=== PATIENT | female | born 1970 | race Caucasian/White ===

== ENCOUNTER → 2021-09-14 16:42 | Outpatient (CLI) | payer MEDICAID, SELFPAY ==
[2021-09-14 17:51] LABS: Absolute Lymphocyte Count 1.19 X10^3/uL (0.83-4.51); Absolute Neutrophil Count 5.3 X10^3/uL (2.0-7.7); Basophil# 0.13 X10^3/uL; Basophil% 1.6 % (0-1); Eosinophil# 0.41 X10^3/uL; Hematocrit 36.4 % (37-47); Hemoglobin 10.2 g/dL (12.0-15.0); Lymphocyte # 1.19 X10^3/ul (0.83-4.51); Lymphocyte % 14.5 % (19-41); Mean Corpuscular Hgb 19.8 pg (27.0-32.0); Mean Corpuscular Volume 70.8 fL (81-99); Mean Platelet Vol. 9.9 fl (6.2-12.0); Monocyte# 1.15 X10^3/uL; NRBC Flagged by Analyzer 0 % (0-5); Neutrophil # 5.31 X10^3/uL (2.7-7.7); Neutrophil % 64.7 % (47-70); POSITIVE MORPHOLOGY YES; Platelet Count 384 K/mm3 (150-450); RBC Distribution Width CV 27.9 % (11.6-14.6); RBC Distribution Width SD 69.1 fl (35.1-43.9); Red Blood Count 5.14 M/mm3 (4.2-5.4); White Blood Count 8.2 K/mm3 (4.4-11.0)
[2021-09-14 17:53] LABS: Differential Indicated SCAN CRITERIA MET
[2021-09-14 18:42] LABS: Anisocytosis 1+; Crenated RBC RARE; Differential Comment SCANNED; Hypochromasia 3+; Schistocytes RARE; Target Cells RARE
[2021-09-14 19:08] LABS: AST(SGOT) 47 U/L (15-37); Alanine Aminotransfer ALT/SGPT 90 U/L (13-56); Albumin, Serum 3.8 g/dL (3.2-5.0); Alkaline Phosphatase 59 U/L (45-117); Anion Gap 7 (5-15); BUN 13 mg/dL (7-18); Calcium,Total 9.4 mg/dL (8.5-10.1); Chloride 102 mmol/L (98-107); Creatinine, Serum 0.59 mg/dL (0.55-1.02); EST Glomerular Filtration Rate 113 mL/min (>60); Est Glom Filt Rate - Afr Amer 136 mL/min (>60); Globulin 3.8 g/dL (2.2-4.2); Glucose 98 mg/dL (74-106); Potassium 3.9 mmol/L (3.5-5.1); Protein, Total 7.6 g/dL (6.4-8.2); Sodium Level 137 mmol/L (136-145); Thyroid Stim Hormone (TSH) 1.48 uIU/mL (0.358-3.74)
[2021-09-15 09:17] LABS: Hepatitis C Antibody Non-Reactive (Nonreactive); Vitamin D,25 Hydroxy 31.8 ng/mL
== END ==
PROVIDERS: PCP Family Medicine Geriatric Medicine; Visit Provider Family Medicine Geriatric Medicine
DX: Z00.00 Encounter for general adult medical examination without abnormal findings (principal); E55.9 Vitamin D deficiency, unspecified; R53.83 Other fatigue
CPT/HCPCS: 36415; 80053; 82306; 84443; 85025; 86803

== ENCOUNTER 2021-11-25 11:42 | Outpatient (CLI) | payer MEDICAID, SELFPAY ==
[2021-11-25 15:15] LABS: Absolute Neutrophil Count 9.4 X10^3/uL (2.0-7.7); Basophil# 0.06 X10^3/uL; Basophil% 0.5 % (0-1); Eosinophils% 0.8 % (0-5); Hematocrit 42.2 % (37-47); Hemoglobin 13.5 g/dL (12.0-15.0); Lymphocyte % 10.1 % (19-41); Mean Corpuscular Hgb 27.8 pg (27.0-32.0); Mean Platelet Vol. 10.1 fl (6.2-12.0); Monocyte# 1.07 X10^3/uL; NRBC Flagged by Analyzer 0 % (0-5); Neutrophil # 9.43 X10^3/uL (2.7-7.7); Neutrophil % 79.3 % (47-70); POSITIVE MORPHOLOGY YES; Platelet Count 362 K/mm3 (150-450); RBC Distribution Width CV 22.8 % (11.6-14.6); RBC Distribution Width SD 73.6 fl (35.1-43.9); Red Blood Count 4.85 M/mm3 (4.2-5.4); White Blood Count 11.9 K/mm3 (4.4-11.0)
[2021-11-25 15:16] LABS: Differential Indicated SCAN CRITERIA MET
[2021-11-25 15:23] LABS: Vitamin D,25 Hydroxy 33.1 ng/mL
[2021-11-25 15:39] LABS: Anisocytosis 1+; Differential Comment SCANNED; Hypochromasia RARE; Target Cells RARE
[2021-11-25 15:41] LABS: ALB/GLOB Ratio 1.1 RATIO (0.9-2.4); AST(SGOT) 41 U/L (15-37); Alanine Aminotransfer ALT/SGPT 77 U/L (13-56); Albumin, Serum 4.2 g/dL (3.2-5.0); Alkaline Phosphatase 73 U/L (45-117); Anion Gap 6 (5-15); BUN 18 mg/dL (7-18); BUN/Creat Ratio 21.6 RATIO (10-20); Calcium,Total 9.1 mg/dL (8.5-10.1); Chloride 99 mmol/L (98-107); Creatinine, Serum 0.83 mg/dL (0.55-1.02); EST Glomerular Filtration Rate 76 mL/min (>60); Est Glom Filt Rate - Afr Amer 92 mL/min (>60); Ferritin 25 ng/mL (8-252); Globulin 3.8 g/dL (2.2-4.2); Glucose 93 mg/dL (74-106); Iron 43 ug/dL (50-170); Iron Binding Capacity,Total 404 ug/dL (250-450); Sodium Level 135 mmol/L (136-145)
== END 2021-11-25 23:59 | disposition short-term general hospital (02) ==
LOC: BIMLAB 11:42
PROVIDERS: PCP Internal Medicine; Referring Provider Internal Medicine; Visit Provider Internal Medicine
DX: D64.9 Anemia, unspecified (principal); K59.00 Constipation, unspecified; E55.9 Vitamin D deficiency, unspecified
CPT/HCPCS: 36415; 80053; 82306; 82728; 83540; 83550; 85025

== ENCOUNTER 2022-01-07 16:29 | Outpatient (CLI) | payer MEDICAID, SELFPAY ==
--- NOTE | 2022-01-07 16:44 | RAD_ITS ---
STUDY: X-RAY - LEFT FOOT CLINICAL: Female, 52 years old. Bruising and falls TECHNIQUE: 3 view(s) of the foot. COMPARISON: None. FINDINGS: Normal talus, calcaneus, and tarsal bones. Normal visualized subtalar, talonavicular, calcaneocuboid, tarsal and tarsometatarsal articulations. Normal metatarsi. Normal metatarsophalangeal joint of the great toe. Normal tibial and fibular sesamoid bones. Normal interphalangeal joint of the great toe. Normal phalanges of the great toe. Normal second through fifth metatarsophalangeal joints. Normal interphalangeal joints and phalanges of the lesser toes. There is mild soft tissue edema about the dorsal aspect of the foot. There is no visualized fracture. RAD/Foot min 3 Views IMPRESSION: Mild soft tissue edema. No visualized fracture. If pain persists, consider follow-up study such as MRI to exclude occult fracture if appropriate. Electronically Signed: Jing Berrios MD at 1:05 EST Reading Location ID and State: [facility] / [place] Tel , Service support ,
--- NOTE | 2022-01-07 16:49 | RAD_ITS ---
STUDY: X-RAY - RIGHT FOOT CLINICAL: Female, 52 years old. BRUISING AND FALLS TECHNIQUE: 3 view(s) of the foot. COMPARISON: None. FINDINGS: Normal talus, calcaneus, and tarsal bones. Normal visualized subtalar, talonavicular, calcaneocuboid, tarsal and tarsometatarsal articulations. There is demineralization of the metatarsi. Normal metatarsophalangeal joint of the great toe. Normal tibial and fibular sesamoid bones. Normal interphalangeal joint of the great toe. Normal phalanges of the great toe. Normal second through fifth metatarsophalangeal joints. Normal interphalangeal joints and phalanges of the lesser toes. There is mild soft tissue edema about the dorsal aspect of the foot. RAD/Foot min 3 Views IMPRESSION: Mild soft tissue edema. There is bony osteopenia. Fracture line is not identified. However could consider follow-up MRI for further evaluation to exclude occult fracture. Electronically Signed: Jing Berrios MD at 1:07 EST ,
== END 2022-01-07 23:59 | disposition home or self-care (01) ==
LOC: RAD 16:38
PROVIDERS: PCP Internal Medicine; Visit Provider Physician Assistant
DX: S90.31XA Contusion of right foot, initial encounter (principal); L97.529 Non-pressure chronic ulcer of other part of left foot with unspecified severity; L97.519 Non-pressure chronic ulcer of other part of right foot with unspecified severity; W19.XXXA Unspecified fall, initial encounter
CPT/HCPCS: 73630

== ENCOUNTER 2022-01-13 14:59 | Outpatient (RCR) | payer MEDICAID, SELFPAY ==
--- NOTE | 2022-01-13 16:01 | HP.PTEVAL ---
Patient's Visit Information VAL SIMPSON is a 52 year old F referred to Physical Therapy by SPARKLE Bose with a diagnosis of Malaise and repeated falls. Date of Evaluation: 01/13/22 Physical Therapist: Herberth Burk, DPT, OCS, CSCS - Visit Plan Plan: Pt does not follow therapists directions enough for making trip to therapy worht the time. I have educated brother on squats, heel raises, posture with wedge between knees, butterfly stretch, HS stretch and increasing walking(which should happen as she gets back to [facility]. Written instruct given and brother agreeable to working on these at home vs attempting in clinic based on poor prognosis of following directions. - Subjective Dr. Blas sent her and she is here with her younger brother today. Mom recently and fell one time 2 yrs ago with her. She is non verbal. He does all the talking. He says her walking has suffered . She lives with him and he has guardianship last tuesday when mom . No signs of pain. He says she is walking more pigeon toed. Very stiff gait and not bending knees as much anymore. He says no other falls. Steps at home but she stays on first floor. Steps to enter with railing. She walks by herself at home but appears intoxicated when fatigued. She does not walk without soemone else present. Someone present climbing steps. She does not get up without help. bathroom and dressing require assist mostly dependent as does feeding. She has mental disability since , developmental disorder. Not employed, spends day at home or at [facility] 5 days perweek for 6 hours. Does not have WC but has access to one. No regular ex except walking at [facility]. - Objective Walks with brother trailing her back to PT room deliberately and safely today. Has IR at both femurs and avoids push off at the ankles. Short steps but can walk fast when she wants. Trasnfers bed and chair quickly and I. Pt is nonverbal but makes some intermittent clicking sounds. Follows demonstration to sit and stand and walk well but not commands for ROM or strength testing. Will not foloow commands for turning head or closing eyes for balance testing. Climbs steps with two rails and either foot I, descends prefers L and will not use R even when cued. Tightness apparent in hip flexors as she does not like to lie flat on back and sits up immediately. Otherwise can get to anatomical position. Will not follow directions for MMT or ROM testing. appeaars to be tight in ext rotation at hips, HS and gastroc. AROM WFL on LE otherwise adn UE. Posture is forward head and tends to sit with legs crossed and hips adducted. - Rehabilitation Potential Physical Therapy Diagnosis: Weakness and tightness from sedentary for the last couplke years. Rehabilitation Potential: Questionable - Anticipated Interventions Thank you for the opportunity to evaluate your patient. For Medicare and Medicare HMO plans, please review the plan of care and approve it. It will need to be FAXED BACK to us at [phone] for Medicare purposes. For Medicare only, by signing this I certify the plan of care. Please let me know if there are questions or concerns regarding this plan of care. Physician Signature: Date:
== END 2022-01-13 19:00 | disposition home or self-care (01) ==
LOC: PT 14:59
PROVIDERS: PCP Internal Medicine; Referring Provider Physician Assistant; Visit Provider Physician Assistant
DX: R53.81 Other malaise (principal); R29.6 Repeated falls
CPT/HCPCS: 97162

== ENCOUNTER 2022-02-03 15:30 | Outpatient (RCR) | payer MEDICAID, SELFPAY | END 2022-02-27 23:59 | LOC: NS 15:30 | PROVIDERS: PCP Internal Medicine; Referring Provider Physician Assistant; Visit Provider Physician Assistant | DX: Z71.3 Dietary counseling and surveillance (principal); R63.4 Abnormal weight loss; Z68.1 Body mass index [BMI] 19.9 or less, adult ==

== ENCOUNTER 2022-02-08 12:31 | Day surgery (SDC) | payer MEDICAID, SELFPAY ==
[2022-02-08] VITALS (9 sets, daily range): BP systolic 85–142; BP diastolic 49–86; PULSE 70–115; RESP 14–16; TEMP 36–37; O2SAT 12–100; BMI 16.5
--- NOTE | 2022-02-08 12:42 | HP.PCM_ITS ---
HPI - General HPI Narrative VAL SIMPSON, is a 52 F who presents for screening colonoscopy patient is nonverbal accompanied by her chobey-wl-rxt/nickel plant operator. Patient still having constipation per her nickel plant operator/fjydez-wf-xka she holds her stool in for about 4 days at a time. She weighed about 106lb eating [id number] ankita but did go down to 91 with colonoscopy prep and 2 days of clears. from 12/24/21 office appt: HPI: VAL SIMPSON, is a 51 F who presents to the office today for colonoscopy due to constipation along with her brother and sister david. Pt is non verbal--she lives with and is cared for by her brother and sister david- they are currently working on getting guardianship as her mom was her guardian before she . Pt was 69 lb before she came to live with them, now she is 90 lbs- eating 3000 calories a day- liquids or soft food. [facility] Medical History (Updated 02/04/22 @ 14:41 by Paula Chan) Anemia Autism Colon cancer screening Constipation Developmental non-verbal disorder History of blood transfusion Hypokalemia Insomnia due to mental disorder Intellectual disability Non-smoker Seasonal allergies Seizures Teeth decayed Vision problem Vitamin D deficiency Home Medications diphenhydramine HCl 25 mg capsule 25 mg PO BID 11/25/21 [History Last Taken Unknown] ferrous sulfate 325 mg (65 mg iron) tablet 325 mg PO DAILY 11/25/21 [History Last Taken Unknown] uapjisul-wnk-siln 18 mg-FA 400 mcg-calcium 500 mg-vit K 50 mcg tablet 1 tab PO DAILY 11/25/21 [History Last Taken Unknown] gait belt #2 ea 01/07/22 [Rx Last Taken Unknown] incontinence pad, liner, disp #125 ea 01/07/22 [Rx Last Taken Unknown] potassium bicarbonate-citric acid 25 mEq effervescent tablet 25 meq PO DAILY #90 ea 01/07/22 [Rx Last Taken Unknown] quetiapine 25 mg tablet 25 mg PO QHS #30 tab 01/07/22 [Rx Last Taken Unknown] compr.stocking,knee,long,small #12 ea 01/13/22 [Rx Last Taken Unknown] Walk in transitional tub with jets #1 ea 01/19/22 [Rx Last Taken Unknown] bisacodyl 5 mg tablet,delayed release 20 mg PO ONCE #4 tab 01/20/22 [Rx Last Taken Unknown] magnesium citrate 296 ml PO ONCE #2 bottle 01/20/22 [Rx Last Taken Unknown] acetaminophen 500 mg PO BID 02/04/22 [History Last Taken Unknown] ascorbic acid (vitamin C) [Vitamin C] 1,000 mg PO DAILY 02/04/22 [History Last Taken Unknown] biotin 800 mcg PO DAILY 02/04/22 [History Last Taken Unknown] calcium 26-vit D3-magnesium 15 1 cap PO DAILY 02/04/22 [History Last Taken Unknown] cholecalciferol (vitamin D3) [Vitamin D3] 25 mcg PO DAILY 02/04/22 [History Last Taken Unknown] melatonin 3 mg PO QHS 02/04/22 [History Last Taken Unknown] omega-3 fatty acids [Fish Oil] 1,000 mg PO DAILY 02/04/22 [History Last Taken Unknown] vitamin B complex 1 tab PO DAILY 02/04/22 [History Last Taken Unknown] vitamin E 45 unit PO DAILY 02/04/22 [History Last Taken Unknown] Allergy/AdvReac Type Severity Reaction Status Date / Time No Known Allergies Allergy Verified 02/04/22 14:26 Family History Other Alcoholism Anemia Anesthesia complication Anxiety Arthritis Asthma Bleeding disorder Blood clot in vein Bowel disease FH: defects Heart disease High cholesterol Hypertension Mental disorder Myocardial infarction Osteoporosis Psychiatric care Seasonal allergies Seizure, epileptic Thyroid disorder Surgical History History of appendectomy Social History household members: caregiver Smoking Status: Never smoker alcohol intake: never substance use type: does not use what type of physical activity do you participate in: walking Past Medical/Surgical History Planned Operation Planned Operative Procedure/s: COLONOSCOPY Previous Hospitalizations/Surgeries HX Hospitalizations: Yes (TRANSFUSION) Any Problems With Anesthesia: No You/Your Family Experience Fever (Hyperthermia) With Anes: No Cholinesterase deficiency: No Cardiovascular Hx Hypertension: No Respiratory Hx Sleep Apnea: No Hx Respiratory Tract Infection/Cold (presently): No Do You Snore Loudly (louder than talking or can be heard): No Do You Often Feel Tired/ Fatigued/ Sleepy Dring Daytime?: No Has Anyone Observed You Stop Breathing During Sleep?: No Result (for STOP score): Negative Smoking Status: Never smoker Gastrointestinal Special diet followed at home: Yes (High-Calorie,High-Protein) Neurological Does patient have nerve stimulator: No Allergies No Known Allergies Allergy (Verified 02/04/22 14:26) Discharge Is Pt Admitted From a Assisted, or a Penitentiary: No After D/C, Where Do you Plan to Go: Return Home Vital Signs Vital Signs Vital Signs: Weight Weight: 100 lb 9.6 oz Physical Exam Const alert and no apparent distress Nutritional Appearance: underweight HEENT normocephalic and head/scalp atraumatic Resp normal respiratory effort Cardio regular rate GI soft to palpation and non-tender; Negative for non-distended Extremity no clubbing, cyanosis or edema Neuro CN's II-XII intact bilaterally Psych mental status grossly normal Assessment & Plan Assessment/Plan (1) Colon cancer screening: (2) Constipation: (3) Intellectual disability: Procedure Criteria Type of Procedure Procedure Type: Elective Elective Risks - COVID COVID Risk Discussion: The surgeon/proceduralist and patient have discussed in detail the risk of exposure to and/or potential harm posed by the COVID-19 virus with having a surgery/procedure at this time versus the risk of delaying the surgery/procedure. It is not possible to know either the risk of delaying the surgery or procedure or chance of getting an infection with perfect accuracy, but a joint decision was made between the patient and the surgeon/proceduralist to proceed at this time with the scheduled surgery/procedure as indicated on the consent form. Surgery Risks - Colonoscopy Risks Include but are not Limited To: Risks include but are not limited to: Bleeding, perforation requiring further surgery, inability to complete colonoscopy requiring barium enema.
[2022-02-08] MEDS: Lactated Ringers 1,000 ML 15 ML IV (13:30)
--- NOTE | 2022-02-08 15:39 | OP.COLON_ITS ---
Patient Name: Clari Knapp Procedure Date: 02/08/2022 1:54 PM Date of : 1970 Age: 52 Procedure: Colonoscopy Indications: Screening for colorectal malignant neoplasm Providers: Melissa White MD Medicines: Monitored Anesthesia Care Patient Profile: This is a 52 year old female. Last Colonoscopy: none. The patient's first colonoscopy is today. Complications: No immediate complications. Procedure: Pre-Anesthesia Assessment: - Prior to the procedure, a History and Physical was performed, and patient medications and allergies were reviewed. The patient's tolerance of previous anesthesia was also reviewed. The risks and benefits of the procedure and the sedation options and risks were discussed with the patient. All questions were answered, and informed consent was obtained. Prior Anticoagulants: The patient has taken no previous anticoagulant or antiplatelet agents. ASA Grade Assessment: Per anesthesia. After reviewing the risks and benefits, the patient was deemed in satisfactory condition to undergo the procedure. After I obtained informed consent, the scope was passed under direct vision. Throughout the procedure, the patient's blood pressure, pulse, and oxygen saturations were monitored continuously. The Colonoscope was introduced through the anus and advanced to the cecum, identified by the ileocecal valve. The colonoscopy was performed with difficulty due to poor bowel prep with stool present and a tortuous colon. Successful completion of the procedure was aided by applying abdominal pressure and lavage. The patient tolerated the procedure well. The quality of the bowel preparation was poor. Scope In: 2:11:18 PM Scope Withdrawal Time 0 hours 17 minutes 12 seconds Scope Out: 3:31:51 PM Total Procedure Duration Time 1 hour 20 minutes 33 seconds Findings: The perianal and digital rectal examinations were normal. Due to poor prep/fibrous debris--unable to visual any polyps <6 mm; lavaged about 3 liters. No masses/polyps seen. Impression: - Preparation of the colon was poor. - No specimens collected. Recommendation: - Discharge patient to home. - Resume previous diet. - Continue present medications. - Repeat colonoscopy 2-3 years for screening purposes. Procedure Code(s): --- Professional --- G0121, PT, Colorectal cancer screening; colonoscopy on individual not meeting criteria for high risk Diagnosis Code(s): --- Professional --- Z12.11, Encounter for screening for malignant neoplasm of colon CPT copyright 2017 [employer]. All rights reserved. The codes documented in this report are preliminary and upon senior hardware engineer review may be revised to meet current compliance requirements. MD Melissa Stokes MD 02/08/2022 3:38:28 PM This report has been signed electronically. Number of Addenda: 0 Note Initiated On: 02/08/2022 1:54 PM
--- NOTE | 2022-02-08 15:39 | OP.CCLET_ITS ---
02/08/2022 Raymundo Blas MD [address] [place] [address] [place] [address] Re : Colonoscopy procedure for Clari Knapp Dear Dr. Blas This procedure was performed on Tuesday, February 08, 2022. My impressions and recommendations are as follows: Impressions : - Preparation of the colon was poor. - No specimens collected. Recommendations : - Discharge patient to home. - Resume previous diet. - Continue present medications. - Repeat colonoscopy 2-3 years for screening purposes. My findings are described in the full procedure note, which is enclosed. If I can be of further assistance, please feel free to contact me at Doctor phone number(s): , Work: . Sincerely, MD Meilssa Stokes MD 02/08/2022 3:38:28 PM This report has been signed electronically.
== END 2022-02-08 23:59 | disposition home or self-care (01) ==
LOC: EN 12:34 → AC 12:37
PROVIDERS: PCP Internal Medicine; Referring Provider Internal Medicine; Visit Provider Surgery
PROC: 0DJD8ZZ Inspection of Lower Intestinal Tract, Via Natural or Artificial Opening Endoscopic (ICD-10-PCS; CPT 45378; principal; 2022-02-08 13:55)
DX: Z12.11 Encounter for screening for malignant neoplasm of colon (principal); K59.00 Constipation, unspecified; F79 Unspecified intellectual disabilities
CPT/HCPCS: 45378; 87811; 97802; J7120; J2405

== ENCOUNTER 2022-03-14 21:11 | Emergency (ER) | payer MEDICAID, SELFPAY ==
[2022-03-14 21:13] VITALS: BP 127/67; PULSE 102; RESP 18; TEMP 36.8; O2SAT 98; BMI 16.2
--- NOTE | 2022-03-14 22:20 | EKG12_ITS ---
Test Reason : GEN ILLNESS Blood Pressure : / mmHG Vent. Rate : 106 BPM Atrial Rate : 106 BPM P-R Int : 098 ms QRS Dur : 074 ms QT Int : 324 ms P-R-T Axes : 070 075 022 degrees QTc Int : 430 ms Sinus tachycardia with short OR T wave abnormality, consider inferior ischemia Abnormal ECG Confirmed by RAMYA TAMEZ, GUSTAVO ([id number]), clinical editor MECHE GLASER ([id number]) on 03/15/2022 2:04:34 PM Referred By: PL Confirmed By:GUSTAVO BUI MD
--- NOTE | 2022-03-14 22:22 | EX.ED.DYSGE1 ---
HPI History of Present Illness Chief Complaint: General Illness Informant: legal guardian and family Narrative Narrative: History is from brother and brother's who is the primary caregiver. Patient is nonverbal at baseline. She has a history of MRDD. They brought her in because she is just not eating and drinking. This is evidently been a lifelong challenge for her. This patient's mother back in July. She is now with new family members. When she got to them she was only about 60 pounds. They got her up to about 115 pounds but she is now losing it back down to 89 pounds. This seems to worsen when her teeth worsen. She has history of some dental infections. She was on antibiotics back in January and it did seem to help transiently. She has further appointments with dentist. She also has an appointment with surgery on Tuesday for placement of a PEG tube. They brought her in today because her just concerned she is getting too dehydrated. If she drinks any liquids she will vomit or spit them back up. They can get some thickened liquids in her but it takes quite a bit of time. They spend about 15 or 16 hours a day trying to get food into her. This is just getting progressively worse. There is no reported fevers. No reported coughing. No reported change in urine. Nothing seems to make this better or worse other than antibiotics for the teeth did seem to help transiently to some degree. Patient had a colonoscopy in January that evidently showed no acute process. [facility] Medical History Anemia Autism Chronic constipation Colon cancer screening Constipation Dental infection Developmental non-verbal disorder Feeding difficulties, behavioral History of blood transfusion Hypokalemia Insomnia due to mental disorder Intellectual disability Non-smoker Nutrition disorder Seasonal allergies Seizures Teeth decayed Vision problem Vitamin D deficiency Home Medications diphenhydramine HCl 25 mg capsule 25 mg PO BID 11/25/21 [History Last Taken Unknown] ferrous sulfate 325 mg (65 mg iron) tablet 325 mg PO DAILY 11/25/21 [History Last Taken Unknown] lxydrnls-cpz-zxyv 18 mg-FA 400 mcg-calcium 500 mg-vit K 50 mcg tablet 1 tab PO DAILY 11/25/21 [History Last Taken Unknown] gait belt #2 ea 01/07/22 [Rx Last Taken Unknown] incontinence pad, liner, disp #125 ea 01/07/22 [Rx Last Taken Unknown] potassium bicarbonate-citric acid 25 mEq effervescent tablet 25 meq PO DAILY #90 ea 01/07/22 [Rx Last Taken Unknown] quetiapine 25 mg tablet 25 mg PO QHS #30 tab 01/07/22 [Rx Last Taken Unknown] compr.stocking,knee,long,small #12 ea 01/13/22 [Rx Last Taken Unknown] Walk in transitional tub with jets #1 ea 01/19/22 [Rx Last Taken Unknown] bisacodyl 5 mg tablet,delayed release 20 mg PO ONCE #4 tab 01/20/22 [Rx Last Taken Unknown] acetaminophen 500 mg PO BID 02/04/22 [History Last Taken Unknown] ascorbic acid (vitamin C) [Vitamin C] 1,000 mg PO DAILY 02/04/22 [History Last Taken Unknown] biotin 800 mcg PO DAILY 02/04/22 [History Last Taken Unknown] calcium 26-vit D3-magnesium 15 1 cap PO DAILY 02/04/22 [History Last Taken Unknown] melatonin 3 mg PO QHS 02/04/22 [History Last Taken Unknown] omega-3 fatty acids [Fish Oil] 1,000 mg PO DAILY 02/04/22 [History Last Taken Unknown] vitamin B complex 1 tab PO DAILY 02/04/22 [History Last Taken Unknown] vitamin E 45 unit PO DAILY 02/04/22 [History Last Taken Unknown] linaclotide 72 mcg capsule 72 mcg PO QAM #30 cap 02/19/22 [Rx Last Taken Unknown] cephalexin 250 mg PO Q6H 7 Days #140 ml 03/15/22 [Rx Last Taken Unknown] Allergy/AdvReac Type Severity Reaction Status Date / Time No Known Allergies Allergy Verified 03/14/22 21:15 Family History Other Alcoholism Anemia Anesthesia complication Anxiety Arthritis Asthma Bleeding disorder Blood clot in vein Bowel disease FH: defects Heart disease High cholesterol Hypertension Mental disorder Myocardial infarction Osteoporosis Psychiatric care Seasonal allergies Seizure, epileptic Thyroid disorder Surgical History History of appendectomy Social History household members: caregiver Smoking Status: Never smoker alcohol intake: never substance use type: does not use what type of physical activity do you participate in: walking ROS ROS ED Review of Systems ROS Unobtainable: due to mental condition and due to mental status Constitutional Constitutional ED: Reports weight loss; Denies chills or fever(s) ENT ENT ED: Denies rhinorrhea Respiratory/Chest Respiratory/Chest: Denies cough Gastrointestinal Gastrointestinal: Reports other Details: See history of present illness. No indication of abdominal pain. Genitourinary Genitourinary ED: Denies urinary frequency Integumentary Reports other Details: Patient gets contusions but she commonly hits herself against the wall. This is not new. ; Denies rash Allergic/Immunologic Allergic/Immunologic ED: Denies urticaria EXAM Physical Exam Const Vital Signs: 03/14/22 21:13 03/14/22 21:22 Temperature 98.2 F Temperature Source Temporal Pulse Rate 102 H Respiratory Rate 18 Respiratory Effort Normal Non-Labored Respiratory Pattern Normal Blood Pressure 127/67 H Blood Pressure Mean 87 Pulse Ox 98 Oxygen Delivery Method Room Air Positive well nourished Constitutional Narrative: Patient is sitting calmly in bed. She is quite thin mildly cachectic. Does not look uncomfortable. HEENT Reports dry mucous membranes HEENT Narrative: Mucous membranes are quite dry. She has diffusely poor dentition. No grossly visible abscess. Mouth ED: Yes dry mucous membranes Mouth: dry mucous membranes Eyes EOMs intact bilaterally Neck supple and no JVD Chest Wall inspection of chest normal Resp normal respiratory effort and clear to auscultation bilaterally Cardio regular rate and regular rhythm GI normal to inspection, nondistended, normoactive bowel sounds and non-tender GI Narrative: Abdomen is not distended. Bowel sounds are normal. There is no indication of tenderness Palpation: soft Back/Spine no CVA tenderness Extremity Extremity Narrative: Patient has a few contusions on bony prominences. No sign of significant injury. Neuro Neuro Narrative: Patient is alert and aware. She is nonverbal at baseline. Sensorium / Orientation: alert Skin no rashes or lesions noted MDM MDM MDM Narrative Medical decision making narrative: Patient's blood work showed essentially normal CBC other than a minimal elevation of her white count. Sodium was a little bit high. Her creatinine is preserved. But her BUN to creatinine ratio is high. She is given IV fluids here. Her lactate is normal. Urine shows only 0-5 white cells. We will send a urine culture. I discussed options with the family. Patient's really at her baseline they wanted to make sure that she did not have severe abnormalities. I explained that she does have high sodium but with some IV fluids and encouraging more fluids this should improve. It does need to be rechecked and likely 24 to 48 hours to make sure its not going up. If it is going up she will likely need may be edema and admission and hydration but they like to hold off on that at this time. She has consult for PEG tube coming up this Tuesday. I explained that she will likely need abdominal binder to avoid her pulling on the PEG tube. She will likely do intermittent feedings and fluids. We discussed reasons to return. Patient also has extremely poor dentition and erosions with erythema. She does not have malodorous breath consistent with ANUG. However we will treat with antibiotics as this helped last time. Lab Data Attestation: I reviewed the patient's lab results. Labs: Laboratory Results - last 24 hr 03/14/22 03/14/22 03/14/22 22:35 22:35 22:35 WBC 11.9 H RBC 4.19 L Hgb 12.5 Hct 40.6 MCV 96.9 MCH 29.8 MCHC 30.8 L RDW Std Deviation 56.2 H RDW Coeff of [place] 15.9 H Plt Count 494 H MPV 9.6 Immature Gran % (Auto) 0.500 Neut % (Auto) 76.8 H Lymph % (Auto) 11.2 L [place] % (Auto) 10.9 H Eos % (Auto) 0.3 Baso % (Auto) 0.3 Absolute Neuts (auto) 9.2 H Absolute Lymphs (auto) 1.33 Nucleated RBC % 0 Sodium 150 H Potassium 3.6 Chloride 115 H Carbon Dioxide 30.0 Anion Gap 5 BUN 33 H Creatinine 0.70 Estim Creat Clear Calc 58.55 Est GFR (MDRD) Af Amer 112 Est GFR (MDRD) Non-Af 93 BUN/Creatinine Ratio 47.2 H Glucose 97 Lactic Acid 0.7 Calcium 8.4 L Total Bilirubin 0.40 AST 60 H ALT 82 H Alkaline Phosphatase 209 H Total Protein 6.2 L Albumin 3.2 Globulin 3.0 Albumin/Globulin Ratio 1.1 Urine Color Urine Clarity Urine pH Ur Specific [place] Urine Protein Urine Glucose (UA) Urine Ketones Urine Occult Blood Urine Nitrite Urine Bilirubin Urine Urobilinogen Ur Leukocyte Esterase Urine RBC Urine WBC Ur Squamous Epith Cells Urine Bacteria Urine Mucus 03/14/22 23:47 WBC RBC Hgb Hct MCV MCH MCHC RDW Std Deviation RDW Coeff of [place] Plt Count MPV Immature Gran % (Auto) Neut % (Auto) Lymph % (Auto) [place] % (Auto) Eos % (Auto) Baso % (Auto) Absolute Neuts (auto) Absolute Lymphs (auto) Nucleated RBC % Sodium Potassium Chloride Carbon Dioxide Anion Gap BUN Creatinine Estim Creat Clear Calc Est GFR (MDRD) Af Amer Est GFR (MDRD) Non-Af BUN/Creatinine Ratio Glucose Lactic Acid Calcium Total Bilirubin AST ALT Alkaline Phosphatase Total Protein Albumin Globulin Albumin/Globulin Ratio Urine Color Yellow Urine Clarity Cloudy Urine pH 7.0 Ur Specific [place] 1.010 Urine Protein 30 H Urine Glucose (UA) Normal Urine Ketones 5 H Urine Occult Blood 250 H Urine Nitrite Negative Urine Bilirubin Negative Urine Urobilinogen 4 H Ur Leukocyte Esterase 25 H Urine RBC 10-25 SEEN Urine WBC 0-5 SEEN Ur Squamous Epith Cells 0-5 SEEN Urine Bacteria 4+ Urine Mucus 0 SEEN EKG Initial EKG: Comments: EKG done as part of medical work-up for mild tachycardia. EKG read by me shows a sinus rhythm with regular rhythm and overall rate of 106. Indicating sinus tachycardia. No acute ST elevation or depression although there is some baseline artifact. FL interval, QRS duration and QTc are normal. Discharge Plan Triage Chief Complaint: General Illness ED Provider: Jae Bonilla Dx/Rx/DC Orders Clinical Impression: Acute hypernatremia, Mild dehydration, Dental infection Instructions: Dehydration Prescriptions: New cephalexin 250 mg/5 mL suspension for reconstitution 250 mg PO Q6H 7 Days Qty: 140 RF: 0 No Action ferrous sulfate [Feosol] 325 mg (65 mg iron) tablet 325 mg PO DAILY RF: 0 Women's Multivitamin 18 mg-400 mcg- 500 mg-50 mcg tablet 1 tab PO DAILY RF: 0 diphenhydramine HCl [Allergy (diphenhydramine)] 25 mg capsule 25 mg PO BID RF: 0 (DME) gait belt See Rx Instructions .Route .MEDSUPPLY Qty: 2 RF: 0 (DME) incontinence pad, liner, disp Pad See Rx Instructions .ROUTE .MEDSUPPLY Qty: 125 RF: 3 potassium bicarb-citric acid 25 mEq tablet, effervescent 25 meq PO DAILY Qty: 90 RF: 3 quetiapine [Seroquel] 25 mg tablet 25 mg PO QHS Qty: 30 RF: 1 Linzess 72 mcg capsule 72 mcg PO QAM Qty: 30 RF: 3 biotin 800 mcg Tablet 800 mcg PO DAILY RF: 0 melatonin 3 mg Tablet 3 mg PO QHS RF: 0 acetaminophen 500 mg Tablet 500 mg PO BID RF: 0 vitamin B complex Tablet 1 tab PO DAILY RF: 0 ascorbic acid (vitamin C) [Vitamin C] 500 mg Tablet Extended Release 1,000 mg PO DAILY RF: 0 vitamin E 50 unit Capsule 45 unit PO DAILY RF: 0 Fish Oil Capsule 1,000 mg PO DAILY RF: 0 calcium 26-vit D3-magnesium 15 167 mg calcium- 1.67 mcg-83 mg Capsule 1 cap PO DAILY RF: 0 (DME) compr.stocking,knee,long,small Misc See Rx Instructions .ROUTE .MEDSUPPLY Qty: 12 RF: 0 (DME) Walk in transitional tub with jets See Rx Instructions .Route .MEDSUPPLY Qty: 1 RF: 0 bisacodyl [Dulcolax (bisacodyl)] 5 mg tablet,delayed release (DR/EC) 20 mg PO ONCE Qty: 4 RF: 0 Primary Care Provider: Raymundo Blas Referrals: Raymundo Blas MD [Primary Care Provider] - 2 Days Disposition Disposition: Home, Self Care
[2022-03-14] MEDS: 0.9% Normal Saline 1,000 ML 1000 ML IV (22:41)
[2022-03-14] MEDS: LORazepam 2 MG/ML Syringe IM (22:49)
[2022-03-14 22:53] LABS: Absolute Lymphocyte Count 1.33 X10^3/uL (0.83-4.51); Absolute Neutrophil Count 9.2 X10^3/uL (2.0-7.7); Basophil# 0.03 X10^3/uL; Basophil% 0.3 % (0-1); Eosinophil# 0.03 X10^3/uL; Eosinophils% 0.3 % (0-5); Hematocrit 40.6 % (37-47); Hemoglobin 12.5 g/dL (12.0-15.0); Lymphocyte # 1.33 X10^3/ul (0.83-4.51); Lymphocyte % 11.2 % (19-41); Mean Corp Hgb Conc 30.8 g/dL (32-36); Mean Corpuscular Hgb 29.8 pg (27.0-32.0); Mean Corpuscular Volume 96.9 fL (81-99); Mean Platelet Vol. 9.6 fl (6.2-12.0); Monocyte% 10.9 % (0-10); NRBC Flagged by Analyzer 0 % (0-5); Neutrophil # 9.17 X10^3/uL (2.7-7.7); Neutrophil % 76.8 % (47-70); Platelet Count 494 K/mm3 (150-450); RBC Distribution Width CV 15.9 % (11.6-14.6); RBC Distribution Width SD 56.2 fl (35.1-43.9); Red Blood Count 4.19 M/mm3 (4.2-5.4); White Blood Count 11.9 K/mm3 (4.4-11.0)
[2022-03-14 23:07] LABS: ALB/GLOB Ratio 1.1 RATIO (0.9-2.4); AST(SGOT) 60 U/L (15-37); Alanine Aminotransfer ALT/SGPT 82 U/L (13-56); Albumin, Serum 3.2 g/dL (3.2-5.0); Alkaline Phosphatase 209 U/L (45-117); Anion Gap 5 (5-15); BUN 33 mg/dL (7-18); BUN/Creat Ratio 47.2 RATIO (10-20); Calcium,Total 8.4 mg/dL (8.5-10.1); Chloride 115 mmol/L (98-107); EST Glomerular Filtration Rate 93 mL/min (>60); Est Glom Filt Rate - Afr Amer 112 mL/min (>60); Estimated Creatinine Clearance 58.55 ml/min; Glucose 97 mg/dL (74-106); Potassium 3.6 mmol/L (3.5-5.1); Protein, Total 6.2 g/dL (6.4-8.2); Sodium Level 150 mmol/L (136-145)
[2022-03-14 23:13] LABS: Lactic Acid 0.7 mmol/L (0.4-1.9)
[2022-03-14 23:53] LABS: Mucous, Urine 0 SEEN /hpf (<or=2+)
[2022-03-14 23:57] LABS: Color, Urine Yellow (Yellow); Glucose, Dipstick Normal (Normal); Ketone-Dipstick 5 mg/dl (Negative); Leukocyte Esterase-Dipstick 25 /ul (Negative); Nitrite-Dipstick Negative (Negative); Occult Blood-Urine 250 /ul (Negative); Protein-Dipstick 30 mg/dl (Negative); Urine Bilirubin Dipstick Negative (Negative); Urine Clarity Cloudy (Clear); Urine Urobilinogen 4 mg/dl (Normal)
[2022-03-15 00:56] LABS: Bacteria 4+ /hpf (None Seen); Red Blood Cells-Urine 10-25 SEEN /hpf (0-5); Squamous Epithelial Cells - UA 0-5 SEEN /hpf (5-10); White Blood Cells 0-5 SEEN /hpf (0-5)
[2022-03-15 01:56] VITALS: PULSE 87; RESP 18; O2SAT 98
== END 2022-03-15 01:57 | disposition home or self-care (01) ==
PROVIDERS: Emergency Provider Emergency Medicine; PCP Internal Medicine; Visit Provider Emergency Medicine
DX: E87.0 Hyperosmolality and hypernatremia (principal); K04.7 Periapical abscess without sinus; E86.0 Dehydration; F79 Unspecified intellectual disabilities; F84.0 Autistic disorder
CPT/HCPCS: 80053; 81001; 83605; 85025; 93005; 99283; J7030

== ENCOUNTER 2022-03-18 12:59 | Outpatient (RCR) | payer MEDICAID, SELFPAY ==
--- NOTE | 2022-03-22 15:48 | NS ---
03/19/22: TC after PEG placement to caregiver, Nancy. Per Nancy, pt instructed to use Ensure via PEG 24 hours after placement per Dr. White. Encouraged to increase flushes per Dr. White d/t significant ulcers found during EGD. Explained to Nancy that [facility] had not returned calls to confirm enteral order. Nancy ok w/ using different DME company. Enteral script faxed to Dr. Blas for signature. 03/22/22: TC to f/u w/ Dr. Blas's office as script has not been signed and returned. Spoke w/ office staff, re-faxed script for signature. Signed script received via fax and sent to [facility] [employer] [facility]. TC to Nancy- pt is tolerating original Ensure via PEG. Nancy has been diluting formula w/ water to make it move through tubing easier. Pt is tolerating 4 boluses per day (2.5 cartons total, ~600 calories per Nancy). Eating some jello/pudding by mouth. Nancy states pt is more interested in eating today. Reports only 1 bowel movement small, hard. Encouraged regular flushes. Discussed w/ ARTURO Cruz will follow-up once [facility] confirms receipt of script and gives estimated delivery time. Nancy asked about changing to 4 feeds of Two Buddy HN or Nutren 2.0- instructed they could try 75mL 4x/day w/ 60mL H20 flush before and after. Rylan Wise MS, RDN, LD
== END 2022-03-30 23:59 ==
LOC: NS 12:59
PROVIDERS: PCP Internal Medicine; Referring Provider Physician Assistant; Visit Provider Physician Assistant
DX: Z71.3 Dietary counseling and surveillance (principal); R63.4 Abnormal weight loss; Z68.1 Body mass index [BMI] 19.9 or less, adult
CPT/HCPCS: 97803

== ENCOUNTER 2022-03-19 08:09 | Day surgery (SDC) | payer MEDICAID, SELFPAY ==
[2022-03-19] VITALS (7 sets, daily range): BP systolic 100–146; BP diastolic 63–75; PULSE 69–83; RESP 14–16; TEMP 36.3–37.2; O2SAT 95–100; BMI 15.8
--- NOTE | 2022-03-19 08:19 | PCM.HP.BLA ---
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 Required: No Accompanied by: Caregiver Is patient in pain?: No Allergies No Known Allergies Allergy (Verified 03/16/22 14:28) Medications diphenhydramine HCl 25 mg capsule 25 mg PO BID 11/25/21 [History Confirmed 03/16/22] ferrous sulfate 325 mg (65 mg iron) tablet 325 mg PO DAILY 11/25/21 [History Confirmed 03/16/22] dyxpmmwp-pfi-vfmq 18 mg-FA 400 mcg-calcium 500 mg-vit K 50 mcg tablet 1 tab PO DAILY 11/25/21 [History Confirmed 03/16/22] gait belt #2 ea 01/07/22 [Rx Confirmed 03/16/22] incontinence pad, liner, disp #125 ea 01/07/22 [Rx Confirmed 03/16/22] potassium bicarbonate-citric acid 25 mEq effervescent tablet 25 meq PO DAILY #90 ea 01/07/22 [Rx Confirmed 03/16/22] quetiapine 25 mg tablet 25 mg PO QHS #30 tab 01/07/22 [Rx Confirmed 03/16/22] compr.stocking,knee,long,small #12 ea 01/13/22 [Rx Confirmed 03/16/22] Walk in transitional tub with jets #1 ea 01/19/22 [Rx Confirmed 03/16/22] bisacodyl 5 mg tablet,delayed release 20 mg PO ONCE #4 tab 01/20/22 [Rx Confirmed 03/16/22] acetaminophen 500 mg PO BID 02/04/22 [History Confirmed 03/16/22] ascorbic acid (vitamin C) [Vitamin C] 1,000 mg PO DAILY 02/04/22 [History Confirmed 03/16/22] biotin 800 mcg PO DAILY 02/04/22 [History Confirmed 03/16/22] calcium 26-vit D3-magnesium 15 1 cap PO DAILY 02/04/22 [History Confirmed 03/16/22] melatonin 3 mg PO QHS 02/04/22 [History Confirmed 03/16/22] omega-3 fatty acids [Fish Oil] 1,000 mg PO DAILY 02/04/22 [History Confirmed 03/16/22] vitamin B complex 1 tab PO DAILY 02/04/22 [History Confirmed 03/16/22] vitamin E 45 unit PO DAILY 02/04/22 [History Confirmed 03/16/22] linaclotide 72 mcg capsule 72 mcg PO QAM #30 cap 02/19/22 [Rx Confirmed 03/16/22] cephalexin 250 mg PO Q6H 7 Days #140 ml 03/15/22 [Rx Confirmed 03/16/22] Is last menstrual period known: No Post menopausal: Yes Patient : No PFSH Medical History Anemia Autism Chronic constipation Colon cancer screening Constipation Dental infection Developmental non-verbal disorder Feeding difficulties, behavioral History of blood transfusion Hypokalemia Insomnia due to mental disorder Intellectual disability Non-smoker Nutrition disorder Seasonal allergies Seizures Teeth decayed Vision problem Vitamin D deficiency Surgical History History of appendectomy Family History Other Alcoholism Anemia Anesthesia complication Anxiety Arthritis Asthma Bleeding disorder Blood clot in vein Bowel disease FH: defects Heart disease High cholesterol Hypertension Mental disorder Myocardial infarction Osteoporosis Psychiatric care Seasonal allergies Seizure, epileptic Thyroid disorder Social History household members: caregiver Smoking Status: Never smoker alcohol intake: never substance use type: does not use what type of physical activity do you participate in: walking HPI HPI HPI: VAL SIMPSON, is a 52 F who presents to the office today for malnutrition/dehydration due to nausea and vomiting possibly related to dental infection patient is accompanied by her snlaic-sv-tpe who is the of her brother which is her guardian. Patient is nonverbal. Patient's cqqddy-mw-mfh does states went to the ER on 03/14 for some IV fluids due to dehydration. At that time the sodium was 150. Patient states that starting about 03/07/2022 they have had difficulty getting the patient to eat or drink as she just spits up the food or drink and/or throws up. Patient has been up to 106 lb but currently in the 90s. ROS General General: Yes weight change and fatigue; No appetite, colon cancer or breast cancer Additional Details: Family states weight gain from 65lbs in July to 90lbs present. HEENT HEENT: No difficulty swallowing, eye injury, eye surgery, swollen glands or hoarseness Endo Endocrine: No thyroid disease, diabetes mellitus, thyroid cancer, Hair loss, heat intolerance or cold intolerance Skin Skin: No rash or changing moles Musc Musculoskeletal: No back problems, arthritis, rheumatoid arthritis, gout or joint pain Cardio Cardiovascular: No murmur, pacemaker, heart disease, atrial fibrillation, high blood pressure, heart attack, heart stent, palpitations, shortness of breat with exertion or chest pain Psych Psychiatric: No depression, anxiety or hearing voices Resp Respiratory: No shortness of breath, No sleep apnea, No cough, No COPD, No asthma, No emphysema and No wheezing Gastro Gastrointestinal: No abdominal pain, No nausea or vomiting, No diarrhea, Yes constipation, No blood in stool, No acid reflux, No hemorrhoids, No ulcers, No gallbladder problem and No black,tarry stools Yeison Hematologic: No blood thinners, No blood disorders, No bleeding, No anemia and No blood clots Neuro Neurologic: Yes other (Pt is nonverbal--mentation of young child per family) Exam Const General: anxious Nutritional Appearance: underweight Other: nonverbal [facility] Head: normocephalic and atraumatic Resp Effort & Inspection: normal respiratory effort Cardio Rate: regular rate GI Inspection: non-distended and scaphoid Palpation: soft, no guarding and nontender Neuro Speech: other (nonverbal) Psych Affect: anxious affect Assessment and Plan Assessment and Plan (1) Feeding difficulties, behavioral: Status: Acute (2) Malnutrition: Status: Acute Plan - Dr. Melissa White MD: Discussed with patient's vzlflz-ij-rvz the importance of the patient not being able to pull this PEG tube out for at least 2 to 4 weeks to make sure the tract is allowed to mature. Discussed that if did get pulled out before the 2 weeks would likely need emergency surgery. Patient agcicy-dg-tkv states she is unable to do the stronger Velcro of the abdominal binder so plan to use that as well as a leotard to limit her access to the tube. I have discussed the above with the patient. I have offered the patient EGD with PEG placement for evaluation. I have explained the risks/benefits of the procedure and described the procedure. I have discussed the risks with the patient, including but not limited to: infection, bleeding, perforation of the GI tract requiring emergency surgery, inability to complete the procedure, injury to any internal organs, complications of anesthesia, etc. - the patient understands and agrees to proceed. I have answered all the patient's questions to the patient's satisfaction and the patient has no further questions. Melissa White M.D. Pager: [phone] [facility] [address] [place] [address], [address] [place] [address] Office: [phone] Coding Level of Care Code Off vis,est,level 3 Diagnoses Feeding difficulties, behavioral R63.39 Malnutrition E46 03/16/22 1451<Electronically signed by Melissa White MD>Date Melissa White MD
[2022-03-19] MEDS: Lactated Ringers 1,000 ML 30 ML IV (08:54)
--- NOTE | 2022-03-19 09:15 | IMM_PTH ---
PATIENT: VAL SIMPSON LOC: EN U#:[id number] AGE/SX: 52/F ROOM: RE03/19/[address]: Dr. Melissa White MD : 1970 BED: DIS: 03/19/2022 SPEC #: [id number] RECD: 03/19/22 15:04 STATUS: JOÃO REQ #: [id number] SADIA: 03/19/22 09:[address]: Melissa White DEPT: IMMUNOHISTOCHEMISTRY RECD BY: Barbara Baires ENTERED: 03/19/22 15:05 SP TYPE: IMMUNO OTHR DR: Dr. Raymundo Blas MD Tissues: Stomach, NOS Procedures: H Pylori (initial) KI-67 (add) P53 (add) PHYSICIAN & INSTITUTION [place] [id number] SPECIMEN INFORMATION: Tissue Source: Antrum biopsy Clinical Info: Feeding difficulties, malnutrition Specimen Number: [id number] CPT code: 46340, 07424 x2 METHODOLOGY: Deparaffinized sections of prefer/formalin-fixed tissue or PAP/DQ stained slides are incubated with monoclonal/polyclonal antibodies/oligonucleotide probes. Localization is made via biotin free immunoperoxidase method. Appropriate controls are performed and reacted as expected. Results on target cell population are indicated in the following table: RESULTS: ANTIBODY / CLONE RESULT H Pylori (polyclonal) positive, abundant P53 (DO-7) negative Ki-67 (30-9) positive, low These tests were developed and their performance characteristics determined by [facility]. They may not have been cleared or approved by the U.S. Food and Drug Administration. The FDA has determined that such clearance or approval is not necessary. The above immunohistochemical/dualISH markers are ordered and reviewed by the Pathologist. INTERPRETATION: Antrum, biopsy: Abundant H. pylori organisms present. No evidence of dysplasia. AM:lucio 03/23/2022
--- NOTE | 2022-03-19 09:15 | EGD_PTH ---
PATIENT: VAL SIMPSON LOC: EN U#:[id number] AGE/SX: 52/F ROOM: RE03/19/[address]: Dr. Melissa White MD : 1970 BED: DIS: 03/19/2022 SPEC #: [id number] RECD: 03/19/22 09:57 STATUS: JOÃO BARAKMiguel Ángel #: [id number] SADIA: 03/19/22 09:[address]: Melissa White DEPT: SURGICAL PATHOLOGY RECD BY: Dotty Batista ENTERED: 03/19/22 10:40 SP TYPE: EGD BIOPSY OT DR: Dr. Raymundo Blas MD Tissues: Gastric mucous membrane Procedures: Surgery Specimen Level IV HEADER OPERATION: EGD ([facility]) with PEG PRE-OP DIAGNOSIS: Feeding difficulties, malnutrition TISSUE SUBMITTED: Antrum biopsy for H. pylori and path MICROSCOPIC DIAGNOSIS Gastric antrum, biopsy: Chronic active gastritis and intestinal metaplasia. Positive for abundant Helicobacter pylori. No evidence of dysplasia. See comment. AM:lucio 03/22/2022 COMMENT The results of immunohistochemistry for Helicobacter pylori will be reported separately ([id number]). Immunohistochemistry ([id number]) for P53 and Ki-67 will be performed and results will be reported separately. MICROSCOPIC DESCRIPTION Slides are reviewed. GROSS DESCRIPTION Received in fixative is one container labeled with the patient's name and designated antrum biopsy. The specimen consists of one irregular fragment of light byrne soft tissue that measures 0.5 x 0.3 x 0.1 cm. The specimen is totally submitted in one cassette. / AM:lucio 03/19/2022 TC:3 [facility]: [id number]
--- NOTE | 2022-03-19 09:42 | OP.EGD_ITS ---
Patient Name: Clari Knapp Procedure Date: 03/19/2022 9:07 AM Date of : 1970 Age: 52 Procedure: Upper GI endoscopy Indications: Malnutrition, Nausea with vomiting Providers: Melissa White MD Medicines: Monitored Anesthesia Care Patient Profile: This is a 52 year old female. Complications: No immediate complications. Procedure: Pre-Anesthesia Assessment: - Prior to the procedure, a History and Physical was performed, and patient medications and allergies were reviewed. The patient's tolerance of previous anesthesia was also reviewed. The risks and benefits of the procedure and the sedation options and risks were discussed with the patient. All questions were answered, and informed consent was obtained. Prior Anticoagulants: The patient has taken no previous anticoagulant or antiplatelet agents. ASA Grade Assessment: Per anesthesia. After reviewing the risks and benefits, the patient was deemed in satisfactory condition to undergo the procedure. After obtaining informed consent, the endoscope was passed under direct vision. Throughout the procedure, the patient's blood pressure, pulse, and oxygen saturations were monitored continuously. The gastroscope was introduced through the mouth, and advanced to the second part of duodenum. The upper GI endoscopy was accomplished without difficulty. The patient tolerated the procedure well. Scope In: 9:22:07 AM Scope Out: 9:33:28 AM Total Procedure Duration Time 0 hours 11 minutes 21 seconds Findings: The Z-line was variable and was found 36 cm from the incisors. Two non-bleeding cratered duodenal ulcers with pigmented material were found in the first portion of the duodenum. The largest lesion was 20 mm in largest dimension. Moderately erythematous mucosa without bleeding was found in the gastric antrum. Biopsies were taken with a cold forceps for histology. Biopsies were taken with a cold forceps for Helicobacter pylori testing. The patient was placed in the supine position for PEG placement. The stomach was insufflated to appose gastric and abdominal johnson. A site was located in the body of the stomach with excellent transillumination for placement. The abdominal wall was marked and prepped in a sterile manner. The area was anesthetized with 3 mL of 1% lidocaine. The trocar needle was introduced through the abdominal wall and into the stomach under direct endoscopic view. A snare was introduced through the endoscope and opened in the gastric lumen. The guide wire was passed through the trocar and into the open snare. The snare was closed around the guide wire. The endoscope and snare were removed, pulling the wire out through the mouth. A skin incision was made at the site of needle insertion. The externally removable 20 Fr EndoVive Safety gastrostomy tube was lubricated. The G-tube was tied to the guide wire and pulled through the mouth and into the stomach. The trocar needle was removed, and the gastrostomy tube was pulled out from the stomach through the skin. The external bumper was attached to the gastrostomy tube, and the tube was cut to remove the guide wire. The final position of the gastrostomy tube was confirmed by relook endoscopy, and skin marking noted to be 3 cm at the external bumper. The final tension and compression of the abdominal wall by the PEG tube and external bumper were checked and revealed that the bumper was loose and lightly touching the skin. The feeding tube was capped, and the tube site cleaned and dressed. Impression: - Z-line variable, 36 cm from the incisors. - Multiple non-bleeding duodenal ulcers with pigmented material. - Erythematous mucosa in the antrum. Biopsied. - An externally removable PEG placement was successfully completed. Recommendation: - Discharge patient to home. - Ok for TF tomorrow, PEG to gravity today, ok to use for meds. - Use Protonix (pantoprazole) 40 mg PEG BID. - Use sucralfate tablets 1 gram PEG QID for 1 month. - No aspirin, ibuprofen, naproxen, or other non-steroidal anti-inflammatory drugs for 4 weeks. Procedure Code(s): --- Professional --- 22967, Esophagogastroduodenoscopy, flexible, transoral; with directed placement of percutaneous gastrostomy tube 61674, Esophagogastroduodenoscopy, flexible, transoral; with biopsy, single or multiple Diagnosis Code(s): --- Professional --- K22.8, Other specified diseases of esophagus K26.9, Duodenal ulcer, unspecified as acute or chronic, without hemorrhage or perforation K31.89, Other diseases of stomach and duodenum E46, Unspecified protein-calorie malnutrition R11.2, Nausea with vomiting, unspecified CPT copyright 2017 [employer]. All rights reserved. The codes documented in this report are preliminary and upon internet webmaster review may be revised to meet current compliance requirements. MD Melissa Stokes MD 03/19/2022 9:41:50 AM This report has been signed electronically. Number of Addenda: 0 Note Initiated On: 03/19/2022 9:07 AM
--- NOTE | 2022-03-19 09:43 | OP.CCLET_ITS ---
03/19/2022 Raymundo Blas MD [address] [place] [address] [place] [address] Re : Upper GI endoscopy procedure for Clari Knapp Dear Dr. Blas This procedure was performed on Saturday, March 19, 2022. My impressions and recommendations are as follows: Impressions : - Z-line variable, 36 cm from the incisors. - Multiple non-bleeding duodenal ulcers with pigmented material. - Erythematous mucosa in the antrum. Biopsied. - An externally removable PEG placement was successfully completed. Recommendations : - Discharge patient to home. - Ok for TF tomorrow, PEG to gravity today, ok to use for meds. - Use Protonix (pantoprazole) 40 mg PEG BID. - Use sucralfate tablets 1 gram PEG QID for 1 month. - No aspirin, ibuprofen, naproxen, or other non-steroidal anti-inflammatory drugs for 4 weeks. My findings are described in the full procedure note, which is enclosed. If I can be of further assistance, please feel free to contact me at Doctor phone number(s): , Work: . Sincerely, MD Melissa Stokes MD 03/19/2022 9:41:50 AM This report has been signed electronically.
--- NOTE | 2022-03-19 10:57 | SUR.PHASEII ---
This nurse educated Lisandra, patient's animal care service worker on Peg Tube. Medication administration, flushing, cleaning and care. All questions answered at this time. Education materials provided.
== END 2022-03-19 11:32 | disposition home or self-care (01) ==
LOC: EN 08:10 → AC 08:11
PROVIDERS: PCP Internal Medicine; Referring Provider Internal Medicine; Visit Provider Surgery
PROC: 0DJ08ZZ Inspection of Upper Intestinal Tract, Via Natural or Artificial Opening Endoscopic (ICD-10-PCS; CPT 43235; principal; 2022-03-19 09:10)
DX: K29.70 Gastritis, unspecified, without bleeding (principal); Z93.1 Gastrostomy status; E46 Unspecified protein-calorie malnutrition; R11.2 Nausea with vomiting, unspecified; R63.39 Other feeding difficulties; D64.9 Anemia, unspecified; B96.81 Helicobacter pylori [H. pylori] as the cause of diseases classified elsewhere; K26.9 Duodenal ulcer, unspecified as acute or chronic, without hemorrhage or perforation; K31.89 Other diseases of stomach and duodenum
CPT/HCPCS: 43239; 43246; 88305; 88341; 88342; J7120; J2405

== ENCOUNTER 2022-03-26 10:51 | Emergency (ER) | payer MEDICAID, SELFPAY ==
[2022-03-26 10:53] VITALS: BP 126/98; PULSE 92; RESP 17; TEMP 37.1; BMI 15.7
--- NOTE | 2022-03-26 11:38 | EDS_ITS ---
HPI History of Present Illness Chief Complaint: Wound Check Informant: legal guardian and family Narrative Narrative: 52-year-old female intellectual disability presents to the emergency room after her new PEG tube was pulled out. Patient had a PEG tube placed at the end of last week with Dr. Wu. She has been having an abdominal binder on but this morning it got urinated on and they took it off to clean it. This resulted in the patient grabbing the PEG tube and pulling it out. Dr. Wu called and spoke to me regarding this case and is comfortable with us attempting to replace it. [facility] Medical History Anemia Anxiety Autism Bladder disease Chronic constipation Colon cancer screening Constipation Dental infection Developmental non-verbal disorder Difficulty chewing Difficulty swallowing Feeding difficulties, behavioral History of blood transfusion History of edema Hypokalemia Insomnia due to mental disorder Intellectual disability Loose, teeth Non-smoker Nutrition disorder Pressure ulcer Seasonal allergies Seizures Teeth decayed Uses wheelchair Vision problem Vitamin D deficiency Home Medications diphenhydramine HCl 25 mg capsule 25 mg PO BID 11/25/21 [History Last Taken Unknown] ferrous sulfate 325 mg (65 mg iron) tablet 325 mg PO DAILY 11/25/21 [History Last Taken Unknown] syndnsmm-oiz-vggq 18 mg-FA 400 mcg-calcium 500 mg-vit K 50 mcg tablet 1 tab PO DAILY 11/25/21 [History Last Taken Unknown] gait belt #2 ea 01/07/22 [Rx Last Taken Unknown] incontinence pad, liner, disp #125 ea 01/07/22 [Rx Last Taken Unknown] potassium bicarbonate-citric acid 25 mEq effervescent tablet 25 meq PO DAILY #90 ea 01/07/22 [Rx Last Taken Unknown] quetiapine 25 mg tablet 25 mg PO QHS #30 tab 01/07/22 [Rx Last Taken Unknown] compr.stocking,knee,long,small #12 ea 01/13/22 [Rx Last Taken Unknown] Walk in transitional tub with jets #1 ea 01/19/22 [Rx Last Taken Unknown] bisacodyl 5 mg tablet,delayed release 20 mg PO ONCE #4 tab 01/20/22 [Rx Last Taken Unknown] acetaminophen 500 mg PO BID 02/04/22 [History Last Taken Unknown] ascorbic acid (vitamin C) [Vitamin C] 1,000 mg PO DAILY 02/04/22 [History Last Taken Unknown] biotin 800 mcg PO DAILY 02/04/22 [History Last Taken Unknown] calcium 26-vit D3-magnesium 15 1 cap PO DAILY 02/04/22 [History Last Taken Unknown] melatonin 3 mg PO QHS 02/04/22 [History Last Taken Unknown] omega-3 fatty acids 1,000 mg PO DAILY 02/04/22 [History Last Taken Unknown] vitamin B complex 1 tab PO DAILY 02/04/22 [History Last Taken Unknown] vitamin E 45 unit PO DAILY 02/04/22 [History Last Taken Unknown] linaclotide 72 mcg capsule 72 mcg PO QAM #30 cap 02/19/22 [Rx Last Taken Unknown] cephalexin 250 mg PO Q6H 7 Days #140 ml 03/15/22 [Rx Last Taken Unknown] sucralfate 1 g PO 4X/DAY 30 Days #1200 ml 03/19/22 [Rx Last Taken Unknown] amoxicillin 500 mg tablet 1,000 mg PO BID #14 tab 03/23/22 [Rx Last Taken Unknown] bismuth subsalicylate 525 mg/15 mL oral suspension 525 mg PO .qid PRN #840 ml 03/23/22 [Rx Last Taken Unknown] metronidazole 500 mg tablet 500 mg PO TID #42 tab 03/23/22 [Rx Last Taken Unknown] Allergy/AdvReac Type Severity Reaction Status Date / Time No Known Allergies Allergy Verified 03/26/22 10:53 Family History Other Alcoholism Anemia Anesthesia complication Anxiety Arthritis Asthma Bleeding disorder Blood clot in vein Bowel disease FH: defects Heart disease High cholesterol Hypertension Mental disorder Myocardial infarction Osteoporosis Psychiatric care Seasonal allergies Seizure, epileptic Thyroid disorder Surgical History History of appendectomy History of colonoscopy Social History household members: caregiver Smoking Status: Never smoker alcohol intake: never substance use type: does not use what type of physical activity do you participate in: walking ROS ROS ED Constitutional Constitutional ED: Denies chills, fever(s) or weight loss Eyes Eyes: Denies change in vision or diplopia ENT ENT ED: Denies ear pain, rhinorrhea or sore throat Cardiovascular Cardiovascular: Denies chest pain, orthopnea, palpitations or racing heartbeat Respiratory/Chest Respiratory/Chest: Denies cough, dyspnea or orthopnea Gastrointestinal Gastrointestinal: Denies abdominal pain, diarrhea, nausea or vomiting Genitourinary Genitourinary ED: Denies dysuria, hematuria or urinary frequency Musculoskeletal Musculoskeletal: Denies arthralgias or myalgias Integumentary Denies abscess or rash Neurologic Neurologic: Denies headache(s) or weakness Psychiatric Psychiatric: Denies anxiety, depression, suicidal ideation or suicidal thoughts Endocrine Endocrinology: Denies polydipsia, polyphagia or polyuria Allergic/Immunologic Allergic/Immunologic ED: Denies mouth swelling, tongue swelling or urticaria EXAM Physical Exam Const Vital Signs: 03/26/22 10:53 03/26/22 12:03 03/26/22 12:30 Temperature 98.8 F 98.8 F Temperature Source Temporal Pulse Rate 92 78 Pulse Rate [1] 84 Pulse Rate [2] 88 Pulse Rate [3] 95 Pulse Rate [4] 95 Respiratory Rate 17 16 Respiratory Rate [1] 16 Respiratory Rate [2] 25 H Respiratory Rate [3] 27 H Respiratory Rate [4] 19 H Blood Pressure 126/98 H 116/62 Blood Pressure [1] 116/75 Blood Pressure [2] 133/76 H Blood Pressure [3] 132/76 H Blood Pressure [4] 130/76 H Blood Pressure Mean 107 80 Pulse Ox 100 Oxygen Delivery Method Room Air Nasal Cannula Oxygen Delivery Method [1] Nasal Cannula Oxygen Delivery Method [2] Nasal Cannula Oxygen Delivery Method [3] Nasal Cannula Oxygen Delivery Method [4] Nasal Cannula Oxygen Flow Rate (L/min) 2 Oxygen Flow Rate (L/min) [1] 2 Oxygen Flow Rate (L/min) [2] 2 Oxygen Flow Rate (L/min) [3] 2 Oxygen Flow Rate (L/min) [4] 5 03/26/22 13:00 03/26/22 13:08 Temperature Temperature Source Pulse Rate Pulse Rate [1] Pulse Rate [2] Pulse Rate [3] Pulse Rate [4] Respiratory Rate Respiratory Rate [1] Respiratory Rate [2] Respiratory Rate [3] Respiratory Rate [4] Blood Pressure Blood Pressure [1] Blood Pressure [2] Blood Pressure [3] Blood Pressure [4] Blood Pressure Mean Pulse Ox Oxygen Delivery Method Nasal Cannula Room Air Oxygen Delivery Method [1] Oxygen Delivery Method [2] Oxygen Delivery Method [3] Oxygen Delivery Method [4] Oxygen Flow Rate (L/min) 2 Oxygen Flow Rate (L/min) [1] Oxygen Flow Rate (L/min) [2] Oxygen Flow Rate (L/min) [3] Oxygen Flow Rate (L/min) [4] Positive well nourished and well developed General Appearance ED: well developed HEENT Reports normocephalic, head/scalp atraumatic and moist mucous membranes Negative for trauma Eyes PERRL and EOMs intact bilaterally Neck no lymphadenopathy, supple and no JVD Resp normal respiratory effort and clear to auscultation bilaterally Cardio regular rate, regular rhythm and no murmurs GI normal to inspection, nondistended, normoactive bowel sounds and non-tender Palpation: soft Back/Spine no CVA tenderness and normal ROM Extremity normal to inspection General Extremety ED: Negative for edema General Extremity: Negative for edema Neuro CN's II-XII intact bilaterally Sensorium / Orientation: alert Motor Exam: strength 5/5 throughout Skin no rashes or lesions noted and no wounds MDM MDM MDM Narrative Medical decision making narrative: Family provided informed consent for the use of ketamine which she had last week to help facilitate the PEG placement. I gave 4 mg IM of the left thigh. Patient achieved adequate sedation. The patient was watched on the monitor. A 18 Beninese Casillas catheter was placed into the stoma without difficulty. A 20 Beninese PEG tube was then advanced after the catheter was removed. We will provide a new abdominal binder. My interpretation of the single view abdominal view is Gastrografin in the stomach. I informed Dr. Wu that we were able to replace the PEG tube. Radiography Diagnostic Testing: Clinical Impression(s) from Imaging Studies KUB X-Ray 03/26/22 12:56 IMPRESSION: Patent percutaneous gastrostomy tube without leak. Electronically Signed: Reyes Yo MD at 13:18 EDT , Discharge Plan Triage Chief Complaint: Wound Check ED Provider: Toi Frost Dx/Rx/DC Orders Clinical Impression: Intellectual disability, Nutrition disorder, Malfunction of percutaneous endoscopic gastrostomy (PEG) tube Prescriptions: No Action ferrous sulfate [Feosol] 325 mg (65 mg iron) tablet 325 mg PO DAILY RF: 0 Women's Multivitamin 18 mg-400 mcg- 500 mg-50 mcg tablet 1 tab PO DAILY RF: 0 diphenhydramine HCl [Allergy (diphenhydramine)] 25 mg capsule 25 mg PO BID RF: 0 (DME) gait belt See Rx Instructions .Route .MEDSUPPLY Qty: 2 RF: 0 (DME) incontinence pad, liner, disp Pad See Rx Instructions .ROUTE .MEDSUPPLY Qty: 125 RF: 3 potassium bicarb-citric acid 25 mEq tablet, effervescent 25 meq PO DAILY Qty: 90 RF: 3 quetiapine [Seroquel] 25 mg tablet 25 mg PO QHS Qty: 30 RF: 1 Linzess 72 mcg capsule 72 mcg PO QAM Qty: 30 RF: 3 biotin 800 mcg Tablet 800 mcg PO DAILY RF: 0 melatonin 3 mg Tablet 3 mg PO QHS RF: 0 acetaminophen 500 mg Tablet 500 mg PO BID RF: 0 vitamin B complex Tablet 1 tab PO DAILY RF: 0 ascorbic acid (vitamin C) [Vitamin C] 500 mg Tablet Extended Release 1,000 mg PO DAILY RF: 0 vitamin E 50 unit Capsule 45 unit PO DAILY RF: 0 omega-3 fatty acids Capsule 1,000 mg PO DAILY RF: 0 calcium 26-vit D3-magnesium 15 167 mg calcium- 1.67 mcg-83 mg Capsule 1 cap PO DAILY RF: 0 cephalexin 250 mg/5 mL suspension for reconstitution 250 mg PO Q6H 7 Days Qty: 140 RF: 0 sucralfate 100 mg/mL suspension 1 g PO 4X/DAY 30 Days Qty: 1200 RF: 0 (DME) compr.stocking,knee,long,small Misc See Rx Instructions .ROUTE .MEDSUPPLY Qty: 12 RF: 0 (DME) Walk in transitional tub with jets See Rx Instructions .Route .MEDSUPPLY Qty: 1 RF: 0 bisacodyl [Dulcolax (bisacodyl)] 5 mg tablet,delayed release (DR/EC) 20 mg PO ONCE Qty: 4 RF: 0 metronidazole 500 mg tablet 500 mg PO TID Qty: 42 RF: 0 amoxicillin 500 mg tablet 1,000 mg PO BID Qty: 14 RF: 0 bismuth subsalicylate 525 mg/15 mL suspension 525 mg PO .qid PRN (Reason: diarrhea) Qty: 840 RF: 0 Primary Care Provider: Raymundo Blas Referrals: Raymundo Blas MD [Primary Care Provider] - As Needed Disposition Disposition: Home, Self Care
[2022-03-26 12:03] VITALS: BP 116/62; PULSE 76; PULSE 78; RESP 16; TEMP 37.1; O2SAT 100
[2022-03-26 12:30] VITALS: BP 116/75; BP 130/76; BP 132/76; BP 133/76; PULSE 84; PULSE 88; PULSE 95; RESP 16; RESP 19; RESP 25; RESP 27; O2SAT 100; O2SAT 24; O2SAT 98; O2SAT 99
[2022-03-26] MEDS: Ketamine HCl 500 MG/5 ML Vial 156 MG IM (12:31)
--- NOTE | 2022-03-26 12:56 | RAD_ITS ---
STUDY: X-RAY - ABDOMEN/PELVIS REASON FOR EXAM: Female, 52 years old. PEG tube placement TECHNIQUE: Single AP view of the abdomen / pelvis. COMPARISON: None. FINDINGS: Normal visualized lung bases. There is an unremarkable bowel gas pattern. Oral contrast within the stomach consistent with a patent percutaneous gastrostomy tube. The visualized liver, spleen and kidneys are grossly normal in size and morphology. Calcifications the right upper quadrant consistent with cholelithiasis. Normal visualized osseous structures. RAD/Abdomen Single View (Portable) IMPRESSION: Patent percutaneous gastrostomy tube without leak. Electronically Signed: Reyes Yo MD at 13:18 EDT ,
[2022-03-26 13:00] VITALS: BP 147/77; O2SAT 98
[2022-03-26 13:08] VITALS: BP 142/89; O2SAT 98
[2022-03-26 13:26] VITALS: BP 139/80; PULSE 88; RESP 17; O2SAT 98
== END 2022-03-26 14:01 | disposition home or self-care (01) ==
PROVIDERS: Emergency Provider Emergency Medicine; PCP Internal Medicine; Visit Provider Emergency Medicine
DX: K94.23 Gastrostomy malfunction (principal); F79 Unspecified intellectual disabilities; F41.9 Anxiety disorder, unspecified; F84.0 Autistic disorder; E63.9 Nutritional deficiency, unspecified; E78.00 Pure hypercholesterolemia, unspecified; I10 Essential (primary) hypertension; M81.0 Age-related osteoporosis without current pathological fracture; I25.2 Old myocardial infarction
CPT/HCPCS: 74018; 96372; 99152; 99283; A4216

== ENCOUNTER 2022-03-26 19:56 | Emergency (ER) | payer MEDICAID, SELFPAY ==
[2022-03-26 19:57] VITALS: BP 135/81; PULSE 87; RESP 18; TEMP 36.1; O2SAT 97; BMI 15.9
--- NOTE | 2022-03-26 20:49 | EX.ED.DYSGE1 ---
HPI History of Present Illness Chief Complaint: General Illness Narrative Narrative: 52-year-old female presenting with PEG tube malfunction. Patient was here earlier today after the PEG tube was pulled out by herself. Apparently the patient required ketamine for sedation and the ostomy site was dilated and a PEG tube was successfully placed. This was confirmed by x-ray. The patient went home and her family states that she had had some feeds with some leakage around the PEG tube site. She did successfully get her meds and feed. When the family took off the abdominal binder the PEG tube. The balloon was not apparently inflated. [facility] Medical History Anemia Anxiety Autism Bladder disease Chronic constipation Colon cancer screening Constipation Dental infection Developmental non-verbal disorder Difficulty chewing Difficulty swallowing Feeding difficulties, behavioral History of blood transfusion History of edema Hypokalemia Insomnia due to mental disorder Intellectual disability Loose, teeth Non-smoker Nutrition disorder Pressure ulcer Seasonal allergies Seizures Teeth decayed Uses wheelchair Vision problem Vitamin D deficiency Home Medications diphenhydramine HCl 25 mg capsule 25 mg PO BID 11/25/21 [History Last Taken Unknown] ferrous sulfate 325 mg (65 mg iron) tablet 325 mg PO DAILY 11/25/21 [History Last Taken Unknown] cbeazyby-zys-krwp 18 mg-FA 400 mcg-calcium 500 mg-vit K 50 mcg tablet 1 tab PO DAILY 11/25/21 [History Last Taken Unknown] gait belt #2 ea 01/07/22 [Rx Last Taken Unknown] incontinence pad, liner, disp #125 ea 01/07/22 [Rx Last Taken Unknown] potassium bicarbonate-citric acid 25 mEq effervescent tablet 25 meq PO DAILY #90 ea 01/07/22 [Rx Last Taken Unknown] quetiapine 25 mg tablet 25 mg PO QHS #30 tab 01/07/22 [Rx Last Taken Unknown] compr.stocking,knee,long,small #12 ea 01/13/22 [Rx Last Taken Unknown] Walk in transitional tub with jets #1 ea 01/19/22 [Rx Last Taken Unknown] bisacodyl 5 mg tablet,delayed release 20 mg PO ONCE #4 tab 01/20/22 [Rx Last Taken Unknown] acetaminophen 500 mg PO BID 02/04/22 [History Last Taken Unknown] ascorbic acid (vitamin C) [Vitamin C] 1,000 mg PO DAILY 02/04/22 [History Last Taken Unknown] biotin 800 mcg PO DAILY 02/04/22 [History Last Taken Unknown] calcium 26-vit D3-magnesium 15 1 cap PO DAILY 02/04/22 [History Last Taken Unknown] melatonin 3 mg PO QHS 02/04/22 [History Last Taken Unknown] omega-3 fatty acids 1,000 mg PO DAILY 02/04/22 [History Last Taken Unknown] vitamin B complex 1 tab PO DAILY 02/04/22 [History Last Taken Unknown] vitamin E 45 unit PO DAILY 02/04/22 [History Last Taken Unknown] linaclotide 72 mcg capsule 72 mcg PO QAM #30 cap 02/19/22 [Rx Last Taken Unknown] cephalexin 250 mg PO Q6H 7 Days #140 ml 03/15/22 [Rx Last Taken Unknown] sucralfate 1 g PO 4X/DAY 30 Days #1200 ml 03/19/22 [Rx Last Taken Unknown] amoxicillin 500 mg tablet 1,000 mg PO BID #14 tab 03/23/22 [Rx Last Taken Unknown] bismuth subsalicylate 525 mg/15 mL oral suspension 525 mg PO .qid PRN #840 ml 03/23/22 [Rx Last Taken Unknown] metronidazole 500 mg tablet 500 mg PO TID #42 tab 03/23/22 [Rx Last Taken Unknown] Allergy/AdvReac Type Severity Reaction Status Date / Time No Known Allergies Allergy Verified 03/26/22 19:58 Family History Other Alcoholism Anemia Anesthesia complication Anxiety Arthritis Asthma Bleeding disorder Blood clot in vein Bowel disease FH: defects Heart disease High cholesterol Hypertension Mental disorder Myocardial infarction Osteoporosis Psychiatric care Seasonal allergies Seizure, epileptic Thyroid disorder Surgical History History of appendectomy History of colonoscopy Social History household members: caregiver Smoking Status: Never smoker alcohol intake: never substance use type: does not use what type of physical activity do you participate in: walking ROS ROS ED Constitutional Constitutional ED: Denies chills or fever(s) Eyes Eyes: Denies blurry vision or diplopia ENT ENT ED: Denies rhinorrhea or sore throat Cardiovascular Cardiovascular: Denies chest pain or palpitations Respiratory/Chest Respiratory/Chest: Denies cough or dyspnea Gastrointestinal Gastrointestinal: Denies abdominal pain, diarrhea, nausea or vomiting Genitourinary Genitourinary ED: Denies dysuria or hematuria Musculoskeletal Musculoskeletal: Denies arthralgias or myalgias Integumentary Denies rash Neurologic Neurologic: Denies headache(s) or weakness Psychiatric Psychiatric: Denies anxiety or depression EXAM Physical Exam Const Vital Signs: 03/26/22 19:57 03/26/22 20:33 Temperature 97 F L Temperature Source Temporal Pulse Rate 87 Respiratory Rate 18 Respiratory Pattern Normal Blood Pressure 135/81 H Blood Pressure Mean 99 Pulse Ox 97 Oxygen Delivery Method Room Air Positive well nourished HEENT Negative for trauma Eyes Negative for PERRL or EOMs intact bilaterally Resp normal respiratory effort and clear to auscultation bilaterally Cardio regular rate and regular rhythm GI normal to inspection, nondistended, normoactive bowel sounds GI Narrative: Ostomy site appears to be open. No surrounding induration or erythema. Minimal tenderness to palpation. Neuro oriented x3, CN's II-XII intact bilaterally and no sensory deficits noted Sensorium / Orientation: alert Motor Exam: strength 5/5 throughout Skin no rashes or lesions noted MDM MDM MDM Narrative Medical decision making narrative: PEG tube reportedly fell out however I did inflate the balloon and this is not leaking. I spoke with the family and did relate to them that I thought it might have been intermittently deflated and this is why it fell out. I was able to place a 20 [place] without any difficulty or sedation. Patient tolerated the procedure well. KUB will be obtained to Gastrografin. My interpretation of the KUB is that the PEG tube peers to be in the body of the stomach. The radiologist does agree. Patient family given instructions on acute care. She is discharged in stable condition. Impression: 1. PEG tube placement Lab Data Attestation: I reviewed the patient's lab results. Radiography Diagnostic Testing: Clinical Impression(s) from Imaging Studies KUB X-Ray 03/26/22 21:47 IMPRESSION: PEG tube balloon projects over the body of the stomach. Electronically Signed: Lebron Velez MD at 22:15 EDT , Discharge Plan Triage Chief Complaint: General Illness ED Provider: Driss Russell Dx/Rx/DC Orders Instructions: ED Feeding Tube Replacement Prescriptions: No Action ferrous sulfate [Feosol] 325 mg (65 mg iron) tablet 325 mg PO DAILY RF: 0 Women's Multivitamin 18 mg-400 mcg- 500 mg-50 mcg tablet 1 tab PO DAILY RF: 0 diphenhydramine HCl [Allergy (diphenhydramine)] 25 mg capsule 25 mg PO BID RF: 0 (DME) gait belt See Rx Instructions .Route .MEDSUPPLY Qty: 2 RF: 0 (DME) incontinence pad, liner, disp Pad See Rx Instructions .ROUTE .MEDSUPPLY Qty: 125 RF: 3 potassium bicarb-citric acid 25 mEq tablet, effervescent 25 meq PO DAILY Qty: 90 RF: 3 quetiapine [Seroquel] 25 mg tablet 25 mg PO QHS Qty: 30 RF: 1 Linzess 72 mcg capsule 72 mcg PO QAM Qty: 30 RF: 3 biotin 800 mcg Tablet 800 mcg PO DAILY RF: 0 melatonin 3 mg Tablet 3 mg PO QHS RF: 0 acetaminophen 500 mg Tablet 500 mg PO BID RF: 0 vitamin B complex Tablet 1 tab PO DAILY RF: 0 ascorbic acid (vitamin C) [Vitamin C] 500 mg Tablet Extended Release 1,000 mg PO DAILY RF: 0 vitamin E 50 unit Capsule 45 unit PO DAILY RF: 0 omega-3 fatty acids Capsule 1,000 mg PO DAILY RF: 0 calcium 26-vit D3-magnesium 15 167 mg calcium- 1.67 mcg-83 mg Capsule 1 cap PO DAILY RF: 0 cephalexin 250 mg/5 mL suspension for reconstitution 250 mg PO Q6H 7 Days Qty: 140 RF: 0 sucralfate 100 mg/mL suspension 1 g PO 4X/DAY 30 Days Qty: 1200 RF: 0 (DME) compr.stocking,knee,long,small Misc See Rx Instructions .ROUTE .MEDSUPPLY Qty: 12 RF: 0 (DME) Walk in transitional tub with jets See Rx Instructions .Route .MEDSUPPLY Qty: 1 RF: 0 bisacodyl [Dulcolax (bisacodyl)] 5 mg tablet,delayed release (DR/EC) 20 mg PO ONCE Qty: 4 RF: 0 metronidazole 500 mg tablet 500 mg PO TID Qty: 42 RF: 0 amoxicillin 500 mg tablet 1,000 mg PO BID Qty: 14 RF: 0 bismuth subsalicylate 525 mg/15 mL suspension 525 mg PO .qid PRN (Reason: diarrhea) Qty: 840 RF: 0 Primary Care Provider: Raymundo Blas Referrals: Raymundo Blas MD [Primary Care Provider] - Melissa White MD [STAFF PHYSICIAN] - As Needed Disposition Disposition: Home, Self Care
--- NOTE | 2022-03-26 21:47 | RAD_ITS ---
EXAM: XR Abdomen HISTORY: peg tube -- gastrografin TECHNIQUE: XR Abdomen COMPARISON: Abdominal radiograph from the same day. LIMITATIONS: None. FINDINGS: 2 supine views of the abdomen were obtained. The peg tube balloon projects over the body of the stomach. No evidence of leak. Oral contrast is identified within the stomach as well as the small and large bowel. No gross small bowel dilatation. Gallstones are identified. RAD/Abdomen Single View (Portable) IMPRESSION: PEG tube balloon projects over the body of the stomach. Electronically Signed: Lebron Velez MD at 22:15 EDT ,
== END 2022-03-26 22:24 | disposition home or self-care (01) ==
PROVIDERS: Emergency Provider Student in an Organized Health Care Education/Training Program; PCP Internal Medicine; Visit Provider Student in an Organized Health Care Education/Training Program
DX: K94.23 Gastrostomy malfunction (principal); E78.00 Pure hypercholesterolemia, unspecified; I10 Essential (primary) hypertension; M81.0 Age-related osteoporosis without current pathological fracture; I25.2 Old myocardial infarction
CPT/HCPCS: 43246; 74018; 99283; A4216

== ENCOUNTER 2022-04-21 10:23 | Outpatient (CLI) | payer MEDICAID, SELFPAY | END 2022-04-21 23:59 | disposition home or self-care (01) | PROVIDERS: PCP Internal Medicine; Visit Provider Physician Assistant | DX: Z11.52 Encounter for screening for COVID-19 (principal); R63.4 Abnormal weight loss; Z68.1 Body mass index [BMI] 19.9 or less, adult | CPT/HCPCS: 87635; 97803; U0003; U0005 ==

== ENCOUNTER 2022-04-21 10:30 | Outpatient (RCR) | payer MEDICAID, SELFPAY | END 2022-04-29 23:59 | LOC: NS 10:30 | PROVIDERS: PCP Internal Medicine; Referring Provider Physician Assistant; Visit Provider Physician Assistant | DX: Z71.3 Dietary counseling and surveillance (principal); R63.4 Abnormal weight loss; Z68.1 Body mass index [BMI] 19.9 or less, adult | CPT/HCPCS: 97803 ==

== ENCOUNTER → 2022-04-22 | Outpatient (CLI) | payer MEDICAID, SELFPAY ==
[2022-04-22 15:28] LABS: Absolute Lymphocyte Count 1.42 X10^3/uL (0.83-4.51); Absolute Neutrophil Count 3.9 X10^3/uL (2.0-7.7); Basophil# 0.03 X10^3/uL; Basophil% 0.5 % (0-1); Eosinophil# 0.12 X10^3/uL; Eosinophils% 1.8 % (0-5); Hematocrit 39.3 % (37-47); Hemoglobin 12.8 g/dL (12.0-15.0); Lymphocyte # 1.42 X10^3/ul (0.83-4.51); Lymphocyte % 21.4 % (19-41); Mean Corp Hgb Conc 32.6 g/dL (32-36); Mean Corpuscular Hgb 28.8 pg (27.0-32.0); Mean Corpuscular Volume 88.3 fL (81-99); Monocyte# 1.08 X10^3/uL; Monocyte% 16.3 % (0-10); NRBC Flagged by Analyzer 0 % (0-5); Neutrophil # 3.93 X10^3/uL (2.7-7.7); Neutrophil % 59.1 % (47-70); Platelet Count 536 K/mm3 (150-450); RBC Distribution Width CV 14.5 % (11.6-14.6); RBC Distribution Width SD 47.1 fl (35.1-43.9); Red Blood Count 4.45 M/mm3 (4.2-5.4); White Blood Count 6.6 K/mm3 (4.4-11.0)
== END | disposition home or self-care (01) ==
LOC: BIMLAB 13:53
PROVIDERS: PCP Internal Medicine; Referring Provider Physician Assistant; Visit Provider Physician Assistant
DX: D64.9 Anemia, unspecified (principal)
CPT/HCPCS: 36415; 85025

== ENCOUNTER → 2022-04-26 | Outpatient (CLI) | payer MEDICAID, SELFPAY | END | disposition home or self-care (01) | LOC: LABSPEC 16:04 | PROVIDERS: PCP Internal Medicine; Referring Provider Physician Assistant; Visit Provider Physician Assistant | DX: R19.7 Diarrhea, unspecified (principal) | CPT/HCPCS: 82274; 83630; 87493; 87506 ==

== ENCOUNTER 2022-07-11 11:28 | Inpatient (IN) | payer MEDICAID, SELFPAY ==
[2022-07-11] VITALS (57 sets, daily range): BP systolic 58–120; BP diastolic 24–77; PULSE 50–113; RESP 14–86; TEMP 26.7–37.3; O2SAT 64–100; BMI 22.4; BMI 20.7
[2022-07-11] MEDS: Succinylcholine Chloride 200 MG/10 ML SYRINGE 70 MG IV (11:41)
--- NOTE | 2022-07-11 11:41 | NURSING ---
DR CROSS AT HEAD OF BED, CALLS FOR RSI, RESPIRATORY AT BEDSIDE, 1141 100MG LIDOCAINE IVP BY HAILEE RN, 1142 20 MG ETOMIDATE IVP BY HAILEE RN, 1142 70MG SUCCINYLCHOLINE IVP BY HAILEE RN. PT SUCTION ORAL SECRETIONS, 1144 7.5 ET TUBE PLACED WITH CO2 COLOR CHANGE 22 AT LIP LINE, BAGGING BY RESPIRATORY WITH GOOD COMPLIANCE
[2022-07-11] MEDS: Etomidate 20 MG/10 ML Vial IV (11:42)
--- NOTE | 2022-07-11 11:46 | EKG12_ITS ---
Test Reason : RESPIRATORY DISTRESS Blood Pressure : / mmHG Vent. Rate : 055 BPM Atrial Rate : 055 BPM P-R Int : 156 ms QRS Dur : 092 ms QT Int : 522 ms P-R-T Axes : 058 070 067 degrees QTc Int : 499 ms Sinus bradycardia Nonspecific T wave abnormality Prolonged QT Abnormal ECG Confirmed by RAMYA TAMEZ, GUSTAVO ([id number]), acquisitions editor MECHE GLASER ([id number]) on 07/12/2022 10:22:51 AM Referred By: MOON Confirmed By:GUSTAVO BUI MD
--- NOTE | 2022-07-11 11:46 | CT_ITS ---
STUDY: CT BRAIN WITHOUT CONTRAST REASON FOR EXAM: Female, 52 years old. head injury, syncope RADIATION DOSAGE (If Supplied By Facility): CTDIvol = ( 44.99 ) mGy, DLP = ( 782.05 ) mGycm TECHNIQUE: Transaxial CT imaging of the brain was performed without administration of intravenous contrast material. Individualized dose optimization techniques were used for this CT. COMPARISON: No relevant priors. FINDINGS: Small left anterior parietal scalp hematoma. Normal calvarium. There is disproportionate enlargement of the lateral and third ventricles, as compared to the extra-axial spaces. The findings suggest normal pressure hydrocephalus (NPH). Normal white matter tracts of the cerebral hemispheres. Normal basal ganglia and thalami. Normal brainstem. Normal cerebellum. There is no intracranial hemorrhage. There are no findings of an acute ischemic infarction. Normal visualized paranasal sinuses. CT/Brain/Head without Contrast IMPRESSION: 1. Small left anterior parietal scalp hematoma. No intracranial hemorrhage. 2. Suspect normal pressure hydrocephalus with particular dilatation of the occipital horns of the lateral ventricles. Electronically Signed: Reyes Yo MD at 12:44 EDT ,
--- NOTE | 2022-07-11 11:46 | RAD_ITS ---
STUDY: X-RAY CHEST REASON FOR EXAM: Female, 52 years old. dyspnea TECHNIQUE: Single AP portable view of the chest. COMPARISON: None. FINDINGS: Endotracheal tube with the tip approximate 5 cm above the ramesh. Nasogastric tube with the tip below the diaphragm. Dense alveolar opacity in the lower right lung silhouettes right heart border consistent with right middle lobe pneumonia. There is no demonstrated pleural abnormality. Normal size heart. Normal mediastinum and michael. Normal visualized pulmonary arteries. Normal visualized aortic arch and descending thoracic aorta. Normal visualized thoracic spine. Normal visualized ribs, clavicles, and shoulders. There is no demonstrated abnormality of the visualized soft tissue structures of the upper abdomen. RAD/Chest 1 View (Portable) IMPRESSION: 1. Endotracheal tube with the tip above the ramesh. 2. Nasogastric tube with the tip below the diaphragm. 3. Right middle lobe pneumonia. Electronically Signed: Reyes Yo MD at 12:14 EDT ,
--- NOTE | 2022-07-11 11:48 | CT_ITS ---
STUDY: CT CERVICAL SPINE WITHOUT CONTRAST REASON FOR EXAM: Female, 52 years old. fall, neck pain RADIATION DOSAGE (If Supplied By Facility): CTDIvol = ( 12.76 ) mGy, DLP = ( 227.01 ) mGycm TECHNIQUE: High resolution transaxial imaging was performed without contrast material. Sagittal and coronal images were reconstructed. Individualized dose optimization techniques were used for this CT. COMPARISON: None FINDINGS: Normal craniovertebral junction. There are degenerative changes of the anterior atlantoaxial articulation. Normal odontoid process. Normal cervical lordosis. Normal vertebral bodies and posterior osseous elements. C2-3: Mild right facet hypertrophy and right uncovertebral joint hypertrophy produces mild right neural foraminal stenosis. No central spinal stenosis. C3-4: Mild bilateral facet hypertrophy. Mild broad disc osteophyte complex produces mild spinal stenosis. C4-5: Mild right facet hypertrophy. No spinal stenosis or neural foraminal stenosis. C5-6: Mild broad disc osteophyte complex and bilateral uncovertebral joint hypertrophy produces mild spinal stenosis and mild bilateral neural foraminal stenosis. C6-7: Mild broad disc osteophyte complex and bilateral uncovertebral joint hypertrophy produces mild spinal stenosis and mild bilateral neural foraminal stenosis. C7-T1: Normal endplates. Normal disc height and morphology. Normal central canal and intervertebral neuroforamina. Normal visualized soft tissue structures. CT/Spine Cervical without Contras IMPRESSION: No acute fracture or subluxation. Electronically Signed: Reyes Yo MD at 12:49 EDT ,
--- NOTE | 2022-07-11 11:48 | EX.ED.DYSGE1 ---
HPI History of Present Illness Chief Complaint: Hyperglycemia Detail of Chief Complaint: Unresponsive episode/syncope Informant: family Narrative Narrative: Patient presents via EMS from home after having a syncopal episode this morning. Patient was at the kitchen table apparently was having breakfast and she is normally fed through her PEG tube. Patient then slumped over and struck her head on the ground. She became unresponsive. EMS was called. Patient has history of autism and is nonverbal. Patient found to have respiratory distress and presented on a nonrebreather satting in the 60s and 70s. [facility] Medical History (Updated 07/06/22 @ 17:[address] Raymundo Blas MD) Anemia Anxiety Autism Bladder disease Chronic constipation Colon cancer screening Constipation Dental infection Developmental non-verbal disorder Difficulty chewing Difficulty swallowing Feeding difficulties, behavioral History of blood transfusion History of edema Hypokalemia Insomnia due to mental disorder Intellectual disability Loose, teeth Non-smoker Nutrition disorder Pressure ulcer Seasonal allergies Seizures Teeth decayed Uses wheelchair Vision problem Vitamin D deficiency Home Medications diphenhydramine HCl 25 mg capsule (Allergy (diphenhydramine)) 25 mg PO BID 11/25/21 [History Last Taken Unknown] gait belt #2 ea 01/07/22 [Rx Last Taken Unknown] incontinence pad, liner, disp #125 ea 01/07/22 [Rx Last Taken Unknown] potassium bicarbonate-citric acid 25 mEq effervescent tablet 25 meq PO DAILY #90 ea 01/07/22 [Rx Last Taken Unknown] compr.stocking,knee,long,small #12 ea 01/13/22 [Rx Last Taken Unknown] Walk in transitional tub with jets #1 ea 01/19/22 [Rx Last Taken Unknown] melatonin 3 mg tablet 3 mg PO QHS 02/04/22 [History Last Taken Unknown] NUTRIN 200 miscellaneous 3XD 04/21/22 [History Last Taken Unknown] acetaminophen 500 mg tablet 500 mg PO .PRN 04/21/22 [History Last Taken Unknown] esomeprazole magnesium 20 mg granules delayed release for susp (Nexium Packet) 20 mg PO DAILY 04/21/22 [History Last Taken Unknown] syringe disposable, irrigation 70 mL (Keith Syringe) #50 ea 05/05/22 [Rx Last Taken Unknown] IV STAND #1 ea 07/02/22 [Rx Last Taken Unknown] PEG TUBE COMER #1 ea 07/02/22 [Rx Last Taken Unknown] uwhbu-a-tzkxtiuntbrkn 600 unit capsule (Anti-Gas) 600 unit PO DAILY PRN 07/06/22 [History Last Taken Unknown] multivitamin 1 tab PO DAILY 07/06/22 [History Last Taken Unknown] risperidone 1 mg tablet 1 mg PO QHS #30 tabs 07/06/22 [Rx Last Taken Unknown] diazepam 5 mg tablet (Valium) 5 mg PO BID PRN agitation #30 tabs 07/08/22 [Rx Last Taken Unknown] Allergy/AdvReac Type Severity Reaction Status Date / Time No Known Allergies Allergy Verified 07/06/22 13:18 Family History Other Alcoholism Anemia Anesthesia complication Anxiety Arthritis Asthma Bleeding disorder Blood clot in vein Bowel disease FH: defects Heart disease High cholesterol Hypertension Mental disorder Myocardial infarction Osteoporosis Psychiatric care Seasonal allergies Seizure, epileptic Thyroid disorder Surgical History History of appendectomy History of colonoscopy Social History household members: caregiver Smoking Status: Never smoker alcohol intake: never substance use type: does not use what type of physical activity do you participate in: walking ROS ROS ED ROS Narrative Review of systems comes from a family members who are with her and are of the caregivers. Patient cannot give any history. Review of Systems ROS Unobtainable: due to mental condition EXAM Physical Exam Const Vital Signs: 07/11/22 11:29 07/11/22 11:29 07/11/22 11:37 Temperature 80.0 F L Temperature Source Temporal Pulse Rate 62 62 Respiratory Rate 20 H 20 H Respiratory Pattern Normal Blood Pressure 120/68 Blood Pressure Mean 85 Pulse Ox 64 78 77 Oxygen Delivery Method Non-Rebreather Non-Rebreather Non-Rebreather Oxygen Flow Rate (L/min) Fraction of Inspired Oxygen (FIO2) 07/11/22 11:46 07/11/22 11:57 07/11/22 12:09 Temperature 82.7 F L 82.8 F L Temperature Source Core Core Pulse Rate 56 L 53 L Respiratory Rate 25 H 16 Respiratory Pattern Blood Pressure 77/53 L 97/65 Blood Pressure Mean 61 75 Pulse Ox 90 91 Oxygen Delivery Method Ambu-Bag Ambu-Bag Mechanical Ventilator Oxygen Flow Rate (L/min) 15 Fraction of Inspired Oxygen (FIO2) 07/11/22 12:39 07/11/22 13:00 Temperature 82.9 F L 83.1 F L Temperature Source Core Core Pulse Rate 52 L 50 L Respiratory Rate 16 14 Respiratory Pattern Blood Pressure 85/61 L 79/61 L Blood Pressure Mean 69 67 Pulse Ox 99 99 Oxygen Delivery Method Mechanical Ventilator Mechanical Ventilator Oxygen Flow Rate (L/min) Fraction of Inspired Oxygen (FIO2) 100 100 Positive well nourished and well developed General Appearance ED: well developed and NAD HEENT Reports TM's clear and moist mucous membranes HEENT Narrative: Patient with soft tissue swelling to the left frontal scalp as well as the right posterior occiput. normocephalic; Negative for trauma or tenderness Tympanic Membrane ED: Yes TM's clear Eyes PERRL and EOMs intact bilaterally General Eye ED: Negative for pale conjunctiva or scleral icterus Neck no lymphadenopathy, supple and no JVD General: Negative for tenderness Chest Wall inspection of chest normal and palpation of chest normal Chest: Negative for tenderness Resp Resp Narrative: Patient with tachypnea and respiratory distress. Patient has some cyanosis around the lips and her feet. Effort and Inspection: Negative for respiratory distress or pain with movement Auscultation: Negative for rhonchi, wheezes or diminished lung sounds Cardio regular rate, regular rhythm, S1 normal heart sound, S2 normal heart sound and no murmurs Peripheral Pulses: pulses 2+ throughout GI normal to inspection, nondistended, normoactive bowel sounds, soft to palpation, non-tender, non-distended and no masses Back/Spine no CVA tenderness and no thoracic nor lumbar tenderness Extremity normal to inspection General Extremety ED: Negative for edema General Extremity: Negative for edema Neuro oriented x3, CN's II-XII intact bilaterally, no sensory deficits noted and gait normal Sensorium / Orientation: awake, alert, oriented to person, oriented to place and oriented to time Motor Exam: strength 5/5 throughout and strength abnormal Psych mental status grossly normal Skin no rashes or lesions noted and no wounds MDM MDM MDM Narrative Medical decision making narrative: IV line had been established on arrival to the emergency department. Patient was placed on a saturation equipment operator. Family members are comfortable with patient being intubated as I felt she needed to be intubated due to respiratory distress. Patient was given lidocaine 100 mg IV given the head injury and also given etomidate and succinylcholine. On intubation she was noted to have large amount of what appeared to be tube feedings in the oropharynx which were suctioned. She was intubated with a 7.5 ET tube. Patient was started on Zosyn IV. CT scan of the brain without contrast and CT of the C-spine were essentially unremarkable other than she was noted to have possible normal pressure hydrocephalus on CT scan. Case discussed with hospitalist who will evaluate patient for admission for aspiration pneumonia, syncope, sepsis. Lab Data Attestation: I reviewed the patient's lab results. Labs: Laboratory Results - last 24 hr 07/11/22 07/11/22 07/11/22 11:33 11:33 11:33 WBC 35.4 H* RBC 4.26 Hgb 11.6 L Hct 38.2 MCV 89.7 MCH 27.2 MCHC 30.4 L RDW Std Deviation 57.7 H RDW Coeff of Chase 17.7 H Plt Count 451 H MPV 9.4 Immature Gran % (Auto) 2.100 H Neut % (Auto) 91.6 H Lymph % (Auto) 3.2 L [place] % (Auto) 2.5 Eos % (Auto) 0.1 Baso % (Auto) 0.5 Absolute Neuts (auto) 32.4 H Absolute Lymphs (auto) 1.14 Nucleated RBC % 0.1 Differential Comment SCANNED Diff Path Review February Sodium 132 L Potassium 4.0 Chloride 94 L Carbon Dioxide 28.0 Anion Gap 10 BUN 22 H Creatinine 0.57 Estim Creat Clear Calc 89.24 Est GFR (MDRD) Af Amer 141 Est GFR (MDRD) Non-Af 117 BUN/Creatinine Ratio 38.5 H Glucose 404 H Lactic Acid 3.9 H* Calcium 8.8 Total Bilirubin 0.60 AST 99 H ALT 100 H Alkaline Phosphatase 425 H Troponin I High Sens 12 Total Protein 6.9 Albumin 2.9 L Globulin 4.0 Albumin/Globulin Ratio 0.7 L ABG Data ABG results: ABG 07/11/22 12:19 Specimen Type ART Sample Site R Radial pH 7.25 L Bicarbonate Actual 26.5 H Total CO2 28 Base Excess -1 O2 Saturation 96 O2 % 100 ABG pCO2 61.0 H ABG pO2 97 Salty Test Positive Respiration Rate 14 O2 Delivery Device Adult Vent Vent Mode AC Tidal Volume 450 POC PEEP 5 Radiography Diagnostic Testing: Clinical Impression(s) from Imaging Studies Brain CT 07/11/22 11:46 IMPRESSION: 1. Small left anterior parietal scalp hematoma. No intracranial hemorrhage. 2. Suspect normal pressure hydrocephalus with particular dilatation of the occipital horns of the lateral ventricles. Electronically Signed: Reyes Yo MD at 12:44 EDT Reading Location ID and State: [id number] / [place] , Service support , Chest X-Ray 07/11/22 11:46 IMPRESSION: 1. Endotracheal tube with the tip above the ramesh. 2. Nasogastric tube with the tip below the diaphragm. 3. Right middle lobe pneumonia. Electronically Signed: Reyes Yo MD at 12:14 EDT Reading Location ID and State: [id number] / [employer] , Service support , Cervical Spine CT 07/11/22 11:48 IMPRESSION: No acute fracture or subluxation. Electronically Signed: Reyes Yo MD at 12:49 EDT Reading Location ID and State: [id number] / [employer] , Service support , 1 view prescription interpreted by myself as good position of ET tube above ramesh. Patient also noted to have right lower lobe pneumonia which I suspect is aspiration. Radiology in agreement. EKG Initial EKG: Attestation: I personally reviewed and interpreted this EKG as follows: Comments: Sinus rhythm with a rate of [address] changes Critical Care Time Critical care time (excluding procedures): Including time spent:, Discussing w/Patient &/or Family/[employer]auty [employer] Instructor, Discussing w/Consultants, Arranging Admission or Transfer, Performing Direct Patient Care at Bedside and - (30) Discharge Plan Triage Chief Complaint: Hyperglycemia ED Provider: Dahlia Gardner Dx/Rx/DC Orders Clinical Impression: Syncope, Aspiration pneumonia, Closed head injury, Sepsis Prescriptions: No Action diphenhydramine HCl [Allergy (diphenhydramine)] 25 mg capsule 25 mg PO BID (DME) gait belt See Rx Instructions .Route .MEDSUPPLY Qty: 2 0RF Rx Instructions: Use as needed with activity (DME) incontinence pad, liner, disp Pad See Rx Instructions .ROUTE .MEDSUPPLY Qty: 125 3RF Rx Instructions: As directed potassium bicarb-citric acid 25 mEq tablet, effervescent 25 meq PO DAILY Qty: 90 3RF Rx Instructions: Dissolve in 4oz of water and drink daily esomeprazole magnesium [Nexium Packet] [address] for susp in packet 20 mg PO DAILY NUTRIN 200 miscellaneous 3XD Label Comments: SHAKE FOR PEG TUBE 500 CALORIES EACH multivitamin Tablet 1 tab PO DAILY Anti-Gas 600 unit capsule 600 unit PO DAILY PRN risperidone 1 mg tablet 1 mg PO QHS Qty: 30 1RF melatonin 3 mg Tablet 3 mg PO QHS acetaminophen 500 mg tablet 500 mg PO .PRN (DME) compr.stocking,knee,long,small Misc See Rx Instructions .ROUTE .MEDSUPPLY Qty: 12 0RF Rx Instructions: Wear daily (DME) Walk in transitional tub with jets See Rx Instructions .Route .MEDSUPPLY Qty: 1 0RF Rx Instructions: As directed (DME) Keith Syringe 70 mL syringe See Rx Instructions .Route Qty: 50 0RF Rx Instructions: As directed (DME) IV STAND See Rx Instructions .Route .MEDSUPPLY Qty: 1 0RF Rx Instructions: As directed (DME) PEG TUBE COMER See Rx Instructions .Route .MEDSUPPLY Qty: 1 0RF Rx Instructions: As directed diazepam [Valium] 5 mg tablet 5 mg PO BID PRN (Reason: agitation) Qty: 30 0RF Primary Care Provider: Raymundo Blas Referrals: Raymundo Blas MD [Primary Care Provider] - Disposition Disposition: Acute Care Hospital [facility]
[2022-07-11 12:02] LABS: Absolute Lymphocyte Count 1.14 X10^3/uL (0.83-4.51); Absolute Neutrophil Count 32.4 X10^3/uL (2.0-7.7); Basophil# 0.19 X10^3/uL; Basophil% 0.5 % (0-1); Eosinophil# 0.02 X10^3/uL; Eosinophils% 0.1 % (0-5); Hematocrit 38.2 % (37-47); Hemoglobin 11.6 g/dL (12.0-15.0); Lymphocyte # 1.14 X10^3/ul (0.83-4.51); Lymphocyte % 3.2 % (19-41); Mean Corp Hgb Conc 30.4 g/dL (32-36); Mean Corpuscular Hgb 27.2 pg (27.0-32.0); Mean Corpuscular Volume 89.7 fL (81-99); Mean Platelet Vol. 9.4 fl (6.2-12.0); Monocyte% 2.5 % (0-10); NRBC Flagged by Analyzer 0.1 % (0-5); Neutrophil # 32.37 X10^3/uL (2.7-7.7); Neutrophil % 91.6 % (47-70); POSITIVE COUNT YES; POSITIVE DIFFERENTIAL YES; POSITIVE MORPHOLOGY YES; Platelet Count 451 K/mm3 (150-450); RBC Distribution Width CV 17.7 % (11.6-14.6); RBC Distribution Width SD 57.7 fl (35.1-43.9); Red Blood Count 4.26 M/mm3 (4.2-5.4)
[2022-07-11 12:06] LABS: Differential Indicated SCAN CRITERIA MET; White Blood Count 35.4 K/mm3 (4.4-11.0)
--- NOTE | 2022-07-11 12:07 | NURSING ---
Call from lab, WBC 35.4, Dr. Moscoso aware.
[2022-07-11] MEDS: 0.9% Normal Saline 1,000 ML 150 ML IV ×2 (12:18→19:54)
[2022-07-11 12:19] LABS: ALB/GLOB Ratio 0.7 RATIO (0.9-2.4); AST(SGOT) 99 U/L (15-37); Alanine Aminotransfer ALT/SGPT 100 U/L (13-56); Albumin, Serum 2.9 g/dL (3.2-5.0); Alkaline Phosphatase 425 U/L (45-117); Anion Gap 10 (5-15); BUN 22 mg/dL (7-18); BUN/Creat Ratio 38.5 RATIO (10-20); Calcium,Total 8.8 mg/dL (8.5-10.1); Chloride 94 mmol/L (98-107); Creatinine, Serum 0.57 mg/dL (0.55-1.02); EST Glomerular Filtration Rate 117 mL/min (>60); Est Glom Filt Rate - Afr Amer 141 mL/min (>60); Estimated Creatinine Clearance 89.24 ml/min; Glucose 404 mg/dL (74-106); Protein, Total 6.9 g/dL (6.4-8.2); Sodium Level 132 mmol/L (136-145); Troponin-I HS 12 pg/mL (3.0-54.0)
[2022-07-11 12:20] LABS: Lactic Acid 3.9 mmol/L (0.4-1.9)
[2022-07-11] MEDS: Midazolam 2 MG/2 ML Syringe IV (12:23)
[2022-07-11 12:25] LABS: Differential Comment SCANNED
[2022-07-11 12:25] LABS: Allen Test Positive; Base Excess -1 mmol/L (-2 to +2); Bicarbonate 26.5 mmol/L (22-26); Blood Gas Specimen Type ART; FI02 100; Mode AC; O2 Delivery Device Adult Vent; PEEP 5; PO2 97 mmHG (75-100); RR 14; SITE R Radial; SO2 96 % (95-99); Total Carbon Dioxide 28 mmol/L; Vt 450; pH 7.25 (7.35-7.45)
[2022-07-11] MEDS: 0.9% Normal Saline 1,000 ML 999 ML IV (13:03)
--- NOTE | 2022-07-11 13:09 | NURSING ---
ICU MILEY SYNCOPE, ASPIRATION PNEUMONIA, RESP FAILURE, SEPSIS
--- NOTE | 2022-07-11 13:15 | PCM.HP.STD ---
HPI - General General Date of Admission: 07/11/22 Date of Service: 07/11/22 Chief Complaint: Acute hypoxic respiratory failure HPI Narrative VAL SIMPSON, is a 52 F who presented to the emergency department [facility] on 07/11/2022 with acute mental status change and respiratory failure. The patient suffers from autism with severe to behavioral disturbances and at baseline is on tube feed and nonverbal. She lives with her brother and [id number]. He is her POA and they both care for her together. They obtained custody for her in September. Evidently she was fine up until this morning. They noted she was acting a bit odd and she had an episode where she fell forward. Family states that she has been having some increased gait disturbances lately but this was very atypical. She then was at the kitchen table getting her tube feed for breakfast and then stopped over and struck her head on the ground. She became unresponsive at that point and the EMS was called. She presented to the emergency department satting 60 to 70% on a nonrebreather and was intubated at that time. Family states she has a history of seizure disorder but has not had a seizure since she was very young. They states she takes chronic potassium for her seizure disorder and she is never had any issues like this previously. Upon presentation her temperature was 80 degrees, blood pressure was 77/53, pulse was 56, respiratory rate was 25 and oxygen saturation was 64% on a nonrebreather at 100%. After intubation her oxygen saturations were 99%. CBC showed a markedly elevated white count at 35.4, globin was 11.6, platelet count was 451. Her postintubation ABG showed a pH of 7.25 with a PCO2 of 61 and a PO2 of 97% on 100% FiO2. Chemistry panel showed mild hyponatremia with a sodium of 132, renal function was normal, lactic acid was 3.9, alkaline phosphatase was 425 up from her baseline and her transaminases were elevated at 100 for the ALT and 99 for the AST respectively. Initial troponin was 12, TSH was 3.78 and procalcitonin was 0.70. CT of her head showed a small left anterior parietal scalp hematoma with no intracranial hemorrhage and the imaging was suspicious for normal pressure hydrocephalus with dilation of the occipital horns and the lateral ventricles. Chest x-ray shows a significant right middle lobe/right lower lobe infiltrate. CT of the cervical spine showed no acute fracture subluxation/dislocation. [facility] Medical History Anemia Anxiety Autism Bladder disease Chronic constipation Colon cancer screening Constipation Dental infection Developmental non-verbal disorder Difficulty chewing Difficulty swallowing Feeding difficulties, behavioral History of blood transfusion History of edema Hypokalemia Insomnia due to mental disorder Intellectual disability Loose, teeth Non-smoker Nutrition disorder Pressure ulcer Seasonal allergies Seizures Teeth decayed Uses wheelchair Vision problem Vitamin D deficiency Home Medications diphenhydramine HCl 25 mg capsule (Allergy (diphenhydramine)) 25 mg PO BID 11/25/21 [History Last Taken Unknown] gait belt #2 ea 01/07/22 [Rx Last Taken Unknown] incontinence pad, liner, disp #125 ea 01/07/22 [Rx Last Taken Unknown] potassium bicarbonate-citric acid 25 mEq effervescent tablet 25 meq PO DAILY #90 ea 01/07/22 [Rx Last Taken Unknown] compr.stocking,knee,long,small #12 ea 01/13/22 [Rx Last Taken Unknown] Walk in transitional tub with jets #1 ea 01/19/22 [Rx Last Taken Unknown] melatonin 3 mg tablet 3 mg PO QHS 02/04/22 [History Last Taken Unknown] acetaminophen 500 mg tablet 500 mg PO .PRN 04/21/22 [History Last Taken Unknown] esomeprazole magnesium 20 mg granules delayed release for susp (Nexium Packet) 20 mg PO DAILY 04/21/22 [History Last Taken Unknown] syringe disposable, irrigation 70 mL (Keith Syringe) #50 ea 05/05/22 [Rx Last Taken Unknown] IV STAND #1 ea 07/02/22 [Rx Last Taken Unknown] PEG TUBE COMER #1 ea 07/02/22 [Rx Last Taken Unknown] xfogc-b-mrnspvoxoctod 600 unit capsule (Anti-Gas) 600 unit PO DAILY PRN 07/06/22 [History Last Taken Unknown] multivitamin 1 tab PO DAILY 07/06/22 [History Last Taken Unknown] risperidone 1 mg tablet 1 mg PO QHS #30 tabs 07/06/22 [Rx Last Taken Unknown] diazepam 5 mg tablet (Valium) 5 mg PO BID PRN agitation #30 tabs 07/08/22 [Rx Last Taken Unknown] Allergy/AdvReac Type Severity Reaction Status Date / Time No Known Allergies Allergy Verified 07/11/22 13:10 Family History Other Alcoholism Anemia Anesthesia complication Anxiety Arthritis Asthma Bleeding disorder Blood clot in vein Bowel disease FH: defects Heart disease High cholesterol Hypertension Mental disorder Myocardial infarction Osteoporosis Psychiatric care Seasonal allergies Seizure, epileptic Thyroid disorder Surgical History History of appendectomy History of colonoscopy Social History (Updated 07/11/22 @ 13:[address] Jackeline Verma DO) household members: caregiver Smoking Status: Never smoker alcohol intake: never substance use type: does not use diet: other well-balanced diet: other details: TUBE FEED only additional social history: non verbal at baseline ROS Review of Systems ROS Unobtainable: due to mental condition Vital Signs Vital Signs Vital Signs: 07/11/22 11:29 07/11/22 11:29 07/11/22 11:37 Temperature 80.0 F L Temperature Source Temporal Pulse Rate 62 62 Respiratory Rate 20 H 20 H Respiratory Pattern Normal Blood Pressure 120/68 Blood Pressure Mean 85 Pulse Ox 64 78 77 Oxygen Delivery Method Non-Rebreather Non-Rebreather Non-Rebreather Oxygen Flow Rate (L/min) Fraction of Inspired Oxygen (FIO2) 07/11/22 11:46 07/11/22 11:57 07/11/22 12:09 Temperature 82.7 F L 82.8 F L Temperature Source Core Core Pulse Rate 56 L 53 L Respiratory Rate 25 H 16 Respiratory Pattern Blood Pressure 77/53 L 97/65 Blood Pressure Mean 61 75 Pulse Ox 90 91 Oxygen Delivery Method Ambu-Bag Ambu-Bag Mechanical Ventilator Oxygen Flow Rate (L/min) 15 Fraction of Inspired Oxygen (FIO2) 07/11/22 12:39 07/11/22 13:00 Temperature 82.9 F L 83.1 F L Temperature Source Core Core Pulse Rate 52 L 50 L Respiratory Rate 16 14 Respiratory Pattern Blood Pressure 85/61 L 79/61 L Blood Pressure Mean 69 67 Pulse Ox 99 99 Oxygen Delivery Method Mechanical Ventilator Mechanical Ventilator Oxygen Flow Rate (L/min) Fraction of Inspired Oxygen (FIO2) 100 100 Weight Weight: 55.6 kg Body Mass Index (BMI) 22.4 Physical Exam Const Constitutional Narrative: Cachectic middle-aged white female on ventilator intubated and sedated HEENT normocephalic, hearing grossly normal bilaterally and moist oral mucous membranes HEENT Narrative: Scattered facial trauma with ecchymosis, ET tube in place Eyes conjunctivae normal Eyes Narrative: Pupils are approximately 2 mm and not reactive at this time-intubated with succinylcholine, etomidate, Versed, no scleral icterus Neck no lymphadenopathy, supple, no JVD and no carotid bruits Neck Narrative: Trachea midline, no thyroid enlargement Resp no retractions and no use of accessory muscles Resp Narrative: Markedly diminished right lower lobe with rhonchi Auscultation: rhonchi; Negative for crackles, rales or wheezes Cardio regular rhythm, S1 normal heart sound, S2 normal heart sound, no murmurs, no rub, no gallops, no clicks and no JVD Cardio Narrative: Sinus bradycardia GI normal to inspection, nondistended, normoactive bowel sounds, soft to palpation, non-tender and non-distended GI Narrative: PEG in place, clean and dry Extremity Extremity Narrative: Bilateral lower extremity trace edema at the feet, mottling of bilateral lower extremities with discoloration-patient family states this is chronic Skin skin turgor normal, no jaundice, no petechiae and no mottling Skin Narrative: Scattered ecchymotic areas on head related to fall, Hair: general thinning Nails: dystrophic Neuro Neuro Narrative: 2+ upper and lower extremity reflexes, nonverbal at baseline Psych Psych Narrative: Unable to assess Results Lab / Micro Data Attestation: I reviewed the patient's lab results. Result Diagrams: 07/11/22 11:33 07/11/22 11:33 Labs: Laboratory Results - last 24 hr 07/11/22 11:33: WBC 35.4 H*, RBC 4.26, Hgb 11.6 L, Hct 38.2, MCV 89.7, MCH 27.2, MCHC 30.4 L, RDW Std Deviation 57.7 H, RDW Coeff of Chase 17.7 H, Plt Count 451 H, MPV 9.4, Immature Gran % (Auto) 2.100 H, Neut % (Auto) 91.6 H, Lymph % (Auto) 3.2 L, Preston % (Auto) 2.5, Eos % (Auto) 0.1, Baso % (Auto) 0.5, Absolute Neuts (auto) 32.4 H, Absolute Lymphs (auto) 1.14, Nucleated RBC % 0.1, Differential Comment SCANNED, Diff Path Review May foll 07/11/22 11:33: Sodium 132 L, Potassium 4.0, Chloride 94 L, Carbon Dioxide 28.0, Anion Gap 10, BUN 22 H, Creatinine 0.57, Estim Creat Clear Calc 89.24, Est GFR (MDRD) Af Amer 141, Est GFR (MDRD) Non-Af 117, BUN/Creatinine Ratio 38.5 H, Glucose 404 H, Calcium 8.8, Total Bilirubin 0.60, AST 99 H, ALT 100 H, Alkaline Phosphatase 425 H, Troponin I High Sens 12, Total Protein 6.9, Albumin 2.9 L, Globulin 4.0, Albumin/Globulin Ratio 0.7 L 07/11/22 11:33: Lactic Acid 3.9 H* Micro: Microbiology 07/11/22 12:00 Nasal Secretion SARS-CoV-2 Antigen (Rapid) - Final ABG Data ABG results: ABG 07/11/22 12:19 Specimen Type ART Sample Site R Radial pH 7.25 L Bicarbonate Actual 26.5 H Total CO2 28 Base Excess -1 O2 Saturation 96 O2 % 100 ABG pCO2 61.0 H ABG pO2 97 Salty Test Positive Respiration Rate 14 O2 Delivery Device Adult Vent Vent Mode AC Tidal Volume 450 POC PEEP [address] 07/11/22 11:46 IMPRESSION: 1. Small left anterior parietal scalp hematoma. No intracranial hemorrhage. 2. Suspect normal pressure hydrocephalus with particular dilatation of the occipital horns of the lateral ventricles. Electronically Signed: Reyes Yo MD at 12:44 EDT Reading Location ID and State: [id number] / [employer] , Service support , Chest X-Ray 07/11/22 11:46 IMPRESSION: 1. Endotracheal tube with the tip above the ramesh. 2. Nasogastric tube with the tip below the diaphragm. 3. Right middle lobe pneumonia. Electronically Signed: Reyes Yo MD at 12:14 EDT Reading Location ID and State: [id number] / [employer] , Service support , Cervical Spine CT 07/11/22 11:48 IMPRESSION: No acute fracture or subluxation. Electronically Signed: Reyes Yo MD at 12:49 EDT , Assessment & Plan Assessment/Plan (1) Sepsis: (2) Aspiration pneumonia: (3) Toxic metabolic encephalopathy: (4) Hyperglycemia: (5) Thrombocytosis: (6) Acute respiratory failure with hypoxia and hypercapnia: (7) Hyponatremia: (8) Lactic acidosis: (9) Transaminitis: (10) Elevated alkaline phosphatase level: (11) Leukocytosis: (12) Severe malnutrition: (13) Hypothermia: PLAN: Plan Sepsis secondary to aspiration pneumonia/+-other concurrent infection -Patient with marked leukocytosis, hypothermia, respiratory failure, elevated lactate, and acute mental status change -Currently responding to fluid boluses however cannot rule out septic shock and requirement for pressors at this time -Reevaluate once fluid resuscitation is complete -Family states baseline blood pressure is around 90 systolic -Check blood/urine/sputum cultures -Obtain UA -Check procalcitonin -Start broad-spectrum antibiotics with vancomycin and Zosyn Acute hypoxic and hypercapnic respiratory failure -Patient presented with marked hypoxia with documented oxygen saturations on a nonrebreather at 60 to 70% -Emergently intubated the emergency department -Post ABG shows persistent hypercapnia with PCO2 of 61 -Adjust vent and repeat ABG in 1 hour -Patient is not O2 dependent at baseline -Checks x-ray shows a large right lower lobe pneumonia likely consistent with aspiration as it is documented tube feed were found in her oropharynx upon intubation -Cover with broad-spectrum antibiotics -COVID and flu negative -Check strep pneumo and Legionella antigens -Check sputum culture -As needed albuterol -Consult pulmonary/critical care Leukocytosis -Suspect related to above -Continue to monitor -Antibiotics as noted Toxic/metabolic encephalopathy -Etiology unknown as it sounds like this occurred prior to her decompensation -Patient with remote seizure history -Check EEG -Check ammonia level -ABG shows respiratory acidosis and follow-up pending Hyperglycemia -Blood sugar on presentation was 404 -Patient not diabetic at baseline -No known history of diabetes in the family -Check hemoglobin A1c -Sliding scale every 6 hours -Accu-Cheks every 6 hours Transaminitis/elevated alkaline phosphatase -Slightly elevated from baseline -Check ammonia level -Check GGT with alk phos trending up Lactic acidosis -Likely related to sepsis and hypoxia -Repeat per protocol -Anticipate improvement with fluid boluses and intubation Hyponatremia -Mild at 132 -Does not appear to be baseline -Continue to monitor Thrombocytosis -Appears to be chronic but slightly elevated from recently -Continue to monitor Hypothermia -Etiology unknown -Check TSH -Bear hugger for warming -May be related to sepsis Possible normal pressure hydrocephalus -CT of the head shows dilated ventricles but unfortunately we do not have a baseline to compare -She has urinary incontinence since -Family does report increased mobility issues as of recently Severe malnutrition -Consult dietitian -N.p.o. for now given above issues -Patient has PEG tube and on tube feed at baseline PUD -Patient was to undergo repeat EGD by Dr. White -Appears that it was H. pylori related -On omeprazole at baseline -Protonix 40 mg IV twice daily History of seizure disorder -Per family she takes potassium bicarbonate-citric acid 25 mg effervescent tablets daily for this -No seizure in a long time per conversation with her brother -We will check EEG given presentation Chronic iron deficiency anemia -Hemoglobin appears stable Vascular disease -Patient appears to have poor blood flow bilateral lower extremities -Per family she developed swelling and wounds frequently -Consult wound management Autism with severe behavioral issues -Hold Risperdal and Valium--> recently started in the last 2 weeks -Patient currently intubated and sedated DVT prophylaxis -Lovenox subcu daily -SCDs CODE STATUS -full code as per discussion with her POA-Guardian brother in the emergency department upon admission Critical care time greater than 35 minutes excluding procedures Charges/Coding Procedures Hospitalists Procedures: [id number] Critial Care 1st Hr
--- NOTE | 2022-07-11 13:22 | NURSING ---
PER DR TRENT AT BEDSIDE PRECEDEX STOPPED
--- NOTE | 2022-07-11 13:24 | NURSING ---
AFTER INTUBATION RESTRAINTS APPLIED FOR TUBE PROTECTION, SEE MEDICATION DOCUMENTATION IN MAR, FAMILY NOTIFIED, PER FAMILY PT WILL TRY TO PULL THE TUBE IF SHE WAKES UP
--- NOTE | 2022-07-11 13:32 | NURSING ---
ICU 1
[2022-07-11 14:09] LABS: Hemoglobin A1c 5.3 % (3.8-5.6)
[2022-07-11 14:10] LABS: Thyroid Stim Hormone (TSH) 3.78 uIU/mL (0.358-3.74)
[2022-07-11 14:38] LABS: Bacteria 0 SEEN /hpf (None Seen); Mucous, Urine 0 SEEN /hpf (<or=2+)
[2022-07-11 14:46] LABS: Color, Urine Yellow (Yellow); Glucose, Dipstick 1000 mg/dl (Normal); Ketone-Dipstick 5 mg/dl (Negative); Leukocyte Esterase-Dipstick Negative /ul (Negative); Nitrite-Dipstick Negative (Negative); Occult Blood-Urine 250 /ul (Negative); Protein-Dipstick 30 mg/dl (Negative); Specific Gravity, Urine 1.015 (1.002-1.030); Urine Bilirubin Dipstick Negative (Negative); Urine Clarity Clear (Clear); Urine Urobilinogen Normal (Normal)
[2022-07-11] MEDS: Propofol 10MG/Ml 1,000 MG/100 ML Bottle 3.3 MG CONT INF (14:54)
[2022-07-11 15:06] LABS: Red Blood Cells-Urine 5-10 SEEN /hpf (0-5); Squamous Epithelial Cells - UA 0-5 SEEN /hpf (5-10); White Blood Cells 0-5 SEEN /hpf (0-5)
[2022-07-11 15:16] LABS: Allen Test Positive; Base Excess 0 mmol/L (-2 to +2); Bicarbonate 26.8 mmol/L (22-26); Blood Gas Specimen Type ART; FI02 75; Mode AC; O2 Delivery Device Adult Vent; PEEP 5; PO2 78 mmHG (75-100); RR 14; SITE R Radial; SO2 94 % (95-99); Total Carbon Dioxide 29 mmol/L; Vt 450; pCO2 55.3 mmHg (35-45); pH 7.29 (7.35-7.45)
[2022-07-11 15:34] LABS: T4 Free Direct 1.14 ng/dL (0.76-1.46)
[2022-07-11 15:35] LABS: CPK Total, Creatine Kinase 489 U/L (26-192); Triglycerides 38 mg/dL
[2022-07-11 15:54] LABS: Reflex Lactate? Y
--- NOTE | 2022-07-11 15:56 | ED.RN ---
[address] FL[address]IT[address] PER [address]. HOYT VERBAL ORDER. FLUID WARMER AT 40 DEGREE C. IV FLUID BOLUS GIVEN VIA FLUID WARMER.
--- NOTE | 2022-07-11 16:30 | PCM.RX.CS ---
Consult Pharmacy has been consulted to manage selected antiobiotic: Vancomycin Type of Consult: New start Suspected Infection: Sepsis, Pneumonia Labs: Sodium 132 mmol/L (136-145) L 07/11/22 11:33 Potassium 4.0 mmol/L (3.5-5.1) 07/11/22 11:33 Chloride 94 mmol/L (98-107) L 07/11/22 11:33 Carbon Dioxide 28.0 mmol/L (21.0-32.0) 07/11/22 11:33 Anion Gap 10 (5-15) 07/11/22 11:33 BUN 22 mg/dL (7-18) H 07/11/22 11:33 Creatinine 0.57 mg/dL (0.55-1.02) 07/11/22 11:33 Est GFR (MDRD) Af Amer 141 mL/min (>60) 07/11/22 11:33 Est GFR (MDRD) Non-Af 117 mL/min (>60) 07/11/22 11:33 BUN/Creatinine Ratio 38.5 RATIO (10-20) H 07/11/22 11:33 Glucose 404 mg/dL (74-106) H 07/11/22 11:33 Microbiology: Microbiology 07/11/22 14:30 Urine Catheter - [place] Legionella Antigen - Final 07/11/22 14:30 Urine Catheter - [place] Streptococcus pneumoniae Antigen (M - Final 07/11/22 12:00 Nasal Secretion SARS-CoV-2 Antigen (Rapid) - Final Goal Trough: 15-20 mcg/mL Pharmacy Plan for Drug Dosing: NEW START IV VANCOMYCIN Consulting Physician: Dr. Joshua Verma Indication: Pneumonia, Sepsis Goal Trough: 15-20 SrCr: 0.57 CrCl: 89 mls/min Comments: pt received a 1500mg (25mg/kg) x1 loading dose 07/11/22 at 1559 Vancomcyin Dose: based on pts weight and renal function, recommend an initial dose of 1000mg q12h starting 07/12/22 at 0400. trough before the 4th total dose Pending Level: 07/13/22 at 0330 Pharmacy Service will continue to monitor and adjust dosing as required. Follow-Up Labs: Trough Vancomycin - 07/13/22 @ 0330
[2022-07-11] MEDS: TITRATION PARAMETER CHANGE 1 EACH IV (16:53)
[2022-07-11 16:55] LABS: Lactic Acid 2.6 mmol/L (0.4-1.9)
--- NOTE | 2022-07-11 17:30 | RAD_ITS ---
STUDY: X-RAY CHEST REASON FOR EXAM: Female, 52 years old. acute respiratory change TECHNIQUE: Single AP portable view of the chest. COMPARISON: 07/11/2022 at 1156 FINDINGS: Endotracheal tube and nasogastric tube both which are unchanged. Increased alveolar opacity in both lungs consistent with worsening bilateral pneumonia, pulmonary edema, or ARDS. There is no demonstrated pleural abnormality. Normal size heart. Normal mediastinum and michael. Normal visualized pulmonary arteries. Normal visualized aortic arch and descending thoracic aorta. Normal visualized thoracic spine. Normal visualized ribs, clavicles, and shoulders. There is no demonstrated abnormality of the visualized soft tissue structures of the upper abdomen. RAD/Chest 1 View (Portable) IMPRESSION: Worsening bilateral pneumonia, pulmonary edema, or ARDS. Electronically Signed: Reyes Yo MD at 18:07 EDT ,
--- NOTE | 2022-07-11 18:03 | TELEMED_ITS ---
[facility] Tele[facility] has confirmed receipt of a request for visit. This document confirms receipt of the order initiating the consult. To find the results of the consultation, please view the patient's reports for the scanned Telemed Consult.
--- NOTE | 2022-07-11 19:02 | RAD_ITS ---
STUDY: X-RAY CHEST REASON FOR EXAM: Female, 52 years old. central line placement TECHNIQUE: Single AP portable view of the chest. COMPARISON: 07/11/2022 at 1720 FINDINGS: Interval placement of right internal jugular deep venous line with tip the catheter overlying the junction of the right atrium and superior vena cava with no pneumothorax. Endotracheal tube and nasogastric tube both which are unchanged. The patient is rotated to the right. No change in alveolar opacities in both lungs consistent with bilateral pneumonia, pulmonary edema, ARDS. There is no demonstrated pleural abnormality. Normal size heart. Normal mediastinum and michael. Normal visualized pulmonary arteries. Normal visualized aortic arch and descending thoracic aorta. Normal visualized thoracic spine. Normal visualized ribs, clavicles, and shoulders. There is no demonstrated abnormality of the visualized soft tissue structures of the upper abdomen. RAD/Chest 1 View (Portable) IMPRESSION: Interval placement of right internal jugular deep venous line with tip the catheter overlying the junction of the right atrium and spur vena cava with no pneumothorax. Electronically Signed: Reyes Yo MD at 19:31 EDT ,
--- NOTE | 2022-07-11 19:02 | CPS ---
Patient was switched to APRV per Dr. Lara PH 28, PL 0,Ti 4.5, TL .5 due to saturations dropping into the 70's. Rapid response called, patient was proaned. If patient does not tolerate this through the night and needs to be switched back to AC/VC settings are, Rate 16-18, PEEP 14-16, VT [address] Lara & Dr. Milian.
--- NOTE | 2022-07-11 19:23 | PN.HOSP_ITS ---
Hospitalist Note RAPID RESPONSE: Patient with notable hypoxia, suddenly worsened, sustained 50-60% with improvement with suctioning nor with attempt to lay of right side given notable R sided PNA/aspiration/pneumonitis. With staff patient laid prone and continued on APRV settings per ICU physician Dr. Lara. Patient with underlying MRDD, very agitated with positioning and low BP. Added precedex, d/c propofol transiently. NEP maxed with 3 peripheral lines. An additional 1.5L NS administered without marked BP improvement. Oxygenation with prone position thor ntually improved into the 80-90s but BP remained with MAP <65. CENTRAL LINE NOTE: Patient with ongoing hypotension despite aggressive IVF administration attempts, per ICU staff note. Given MAP not maintaining >65, discussed with ICU staff and Jig And Fixture Builder Apprentice with planned central line placement to initiate pressor therapy. Consent obtained for placement of central line. Region prepped and draped in s tandard fashion with staff to hold both patient shoulder back and head in position given agitation and also prone status with R IJ region prepped. US guidance used to obtain access, guidewire threaded without issue, central line catheter placed over guidewire and wire removed w/ cap placed. Lines again drawn and flushed without difficulty. Central line sutured in place. CXR ordered. During placement ectopy noted on monitor with wire placement. Procedures Hospitalists Procedures: [id number] Insert Non-tunnel CV Cath
[2022-07-11 19:46] LABS: Absolute Lymphocyte Count 0.17 X10^3/uL (0.83-4.51); Absolute Neutrophil Count 0.3 X10^3/uL (2.0-7.7); Hematocrit 31.5 % (37-47); Hemoglobin 9.6 g/dL (12.0-15.0); Lymphocyte # 0.17 X10^3/ul (0.83-4.51); Lymphocyte % 33.3 % (19-41); Mean Corp Hgb Conc 30.5 g/dL (32-36); Mean Corpuscular Hgb 27.1 pg (27.0-32.0); Mean Platelet Vol. 8.4 fl (6.2-12.0); Monocyte# 0.01 X10^3/uL; NRBC Flagged by Analyzer 7.8 % (0-5); Neutrophil # 0.33 X10^3/uL (2.7-7.7); Neutrophil % 64.7 % (47-70); POSITIVE COUNT YES; POSITIVE DIFFERENTIAL YES; POSITIVE MORPHOLOGY YES; Platelet Count 230 K/mm3 (150-450); RBC Distribution Width CV 17.4 % (11.6-14.6); RBC Distribution Width SD 56.5 fl (35.1-43.9); Red Blood Count 3.54 M/mm3 (4.2-5.4)
[2022-07-11 19:50] LABS: Differential Indicated SCAN CRITERIA MET; White Blood Count 0.5 K/mm3 (4.4-11.0)
[2022-07-11] MEDS: 0.9% Saline Lock 10 ML Syringe IV (19:50)
--- NOTE | 2022-07-11 19:57 | NURSING ---
Rapid Response called at 1750. This RN, Rylan Armando RN, Kitty Pacheco RN, Dr. Rylan Milian, along with other staff were present. Pt. was prone due to oxygen saturation. 1 Liter bolus was ordered by as well as precedex gtt and to discontinue propofol. Central Line also placed by Dr. Milian
[2022-07-11] MEDS: Dextrose 50%-Water 25 GM/50 ML DISP.SYRIN IV (20:05)
[2022-07-11 20:15] LABS: ALB/GLOB Ratio 0.7 RATIO (0.9-2.4); AST(SGOT) 53 U/L (15-37); Alanine Aminotransfer ALT/SGPT 54 U/L (13-56); Albumin, Serum 1.7 g/dL (3.2-5.0); Alkaline Phosphatase 222 U/L (45-117); Anion Gap 9 (5-15); BUN 23 mg/dL (7-18); BUN/Creat Ratio 46.1 RATIO (10-20); Calcium,Total 7.2 mg/dL (8.5-10.1); Chloride 110 mmol/L (98-107); EST Glomerular Filtration Rate 137 mL/min (>60); Est Glom Filt Rate - Afr Amer 165 mL/min (>60); Estimated Creatinine Clearance 101.73 ml/min; Globulin 2.4 g/dL (2.2-4.2); Glucose 80 mg/dL (74-106); Potassium 3.5 mmol/L (3.5-5.1); Protein, Total 4.1 g/dL (6.4-8.2); Sodium Level 142 mmol/L (136-145)
[2022-07-11 20:19] LABS: International Normalized Ratio 1.3; Platelet Estimate ADEQUATE (ADEQ)
[2022-07-11 20:20] LABS: Partial Thromboplast Time 38.4 Seconds (24.1-36.2); Red Cell Morphology N CYTIC NORMAL (NORM C&C)
[2022-07-11 20:29] LABS: Hematocrit 29.5 % (37-47); Hemoglobin 8.9 g/dL (12.0-15.0); Mean Corp Hgb Conc 30.2 g/dL (32-36); Mean Corpuscular Hgb 26.8 pg (27.0-32.0); Mean Corpuscular Volume 88.9 fL (81-99); Mean Platelet Vol. 8.7 fl (6.2-12.0); POSITIVE COUNT YES; POSITIVE DIFFERENTIAL YES; POSITIVE MORPHOLOGY YES; Platelet Count 223 K/mm3 (150-450); RBC Distribution Width CV 17.4 % (11.6-14.6); RBC Distribution Width SD 56.4 fl (35.1-43.9); Red Blood Count 3.32 M/mm3 (4.2-5.4)
[2022-07-11 20:30] LABS: White Blood Count 0.5 K/mm3 (4.4-11.0)
[2022-07-11 20:31] LABS: Bedside Glucose 59 mg/dL (74-106)
[2022-07-11] MEDS: Hydrocortisone Sod Succinate 100 MG/2 ML Vial IV (21:13)
[2022-07-12] VITALS (40 sets, daily range): BP systolic 47–88; BP diastolic 22–76; PULSE 53–113; RESP 24–33; TEMP 35.9–37.8; O2SAT 74–87
[2022-07-12] MEDS: Dextrose 50%-Water 25 GM/50 ML DISP.SYRIN IV ×3 (00:45→08:48)
[2022-07-12 00:46] LABS: Bedside Glucose 47 mg/dL (74-106)
[2022-07-12 02:35] LABS: Bedside Glucose 77 mg/dL (74-106)
[2022-07-12] MEDS: Chlorhexidine 15 ML PO (04:12)
[2022-07-12] MEDS: CHLORHEXIDINE GLUC 2% CLOTH 1 EACH TOWELETTE TOPICAL (04:25)
[2022-07-12 04:30] LABS: Absolute Lymphocyte Count 0.41 X10^3/uL (0.83-4.51); Absolute Neutrophil Count 5.8 X10^3/uL (2.0-7.7); Basophil# 0.05 X10^3/uL; Basophil% 0.7 % (0-1); Eosinophil# 0.03 X10^3/uL; Eosinophils% 0.4 % (0-5); Hematocrit 35.4 % (37-47); Hemoglobin 9.9 g/dL (12.0-15.0); Lymphocyte # 0.41 X10^3/ul (0.83-4.51); Mean Corpuscular Volume 96.5 fL (81-99); Mean Platelet Vol. 9.4 fl (6.2-12.0); Monocyte# 0.27 X10^3/uL; NRBC Flagged by Analyzer 7.6 % (0-5); Neutrophil % 85.4 % (47-70); POSITIVE COUNT YES; POSITIVE DIFFERENTIAL YES; POSITIVE MORPHOLOGY YES; Platelet Count 148 K/mm3 (150-450); RBC Distribution Width SD 63.1 fl (35.1-43.9); Red Blood Count 3.67 M/mm3 (4.2-5.4); White Blood Count 6.8 K/mm3 (4.4-11.0)
[2022-07-12] MEDS: Vancomycin IV 1,000 MG/200 ML BAG 200 MG IV (04:30)
[2022-07-12] MEDS: 0.9% Saline Lock 10 ML Syringe IV ×2 (04:33→06:36)
[2022-07-12 04:53] LABS: ALB/GLOB Ratio 0.5 RATIO (0.9-2.4); AST(SGOT) 245 U/L (15-37); Alanine Aminotransfer ALT/SGPT 190 U/L (13-56); Albumin, Serum 1.4 g/dL (3.2-5.0); Alkaline Phosphatase 228 U/L (45-117); Anion Gap 14 (5-15); BUN 32 mg/dL (7-18); BUN/Creat Ratio 27.8 RATIO (10-20); Chloride 110 mmol/L (98-107); Creatinine, Serum 1.15 mg/dL (0.55-1.02); EST Glomerular Filtration Rate 52 mL/min (>60); Est Glom Filt Rate - Afr Amer 63 mL/min (>60); Estimated Creatinine Clearance 44.23 ml/min; GGTP 125 U/L (5-55); Glucose 57 mg/dL (74-106); Magnesium 2.2 mg/dL (1.6-2.6); Protein, Total 4.4 g/dL (6.4-8.2); Sodium Level 140 mmol/L (136-145)
[2022-07-12 04:56] LABS: Bedside Glucose 52 mg/dL (74-106)
[2022-07-12 05:03] LABS: Phosphorus 5.8 mg/dL (2.5-4.9)
[2022-07-12 05:07] LABS: Differential Indicated SCAN CRITERIA MET
[2022-07-12 05:08] LABS: Anisocytosis 2+; Platelet Estimate SLT DEC (ADEQ)
[2022-07-12 05:09] LABS: Atypical Lymphocyte 1+ %
[2022-07-12 05:11] LABS: Bedside Glucose 140 mg/dL (74-106)
--- NOTE | 2022-07-12 06:18 | NURSING ---
pt gets approx 7-8 feedings a day. 2 cans of k-pharm 4x day, 3 cans ensure, power amino acids. after each feeding her tube is flushed with 3 red solo cups of water. sister does not check residual- md notified
[2022-07-12] MEDS: Hydrocortisone Sod Succinate 100 MG/2 ML Vial IV (06:36)
--- NOTE | 2022-07-12 06:42 | EX.PCM.CONCC ---
Assessment & Plan Assessment/Plan (1) Acute respiratory failure with hypoxia and hypercapnia: (2) Aspiration pneumonia due to gastric secretions: PLAN: Plan RECOMMENDATIONS: 1. Decreased T high to improve ventilation 2. Discontinue fentanyl 3. Give 2 A of bicarb now 4. Family to the bedside BRET for update 5. Continue empiric antibiotics 6. Maintain prone position for now 7. Continue pressors and stress dose steroids 8. Addressed CODE STATUS with family BRET IMPRESSIONS: 1. Acute combined respiratory failure secondary to ARDS secondary to aspiration pneumonia Patient with significant bilateral infiltrates, PF ratio less than 100 and currently on APRV to allow for oxygenation. Will attempt to decrease the T high to help with acidosis. Patient will be given bicarbonate to allow family to get to the bedside. Very poor overall prognosis. Patient is on broad-spectrum antibiotics. Multiple pressors are currently in place. ABG shows progression of acidosis from a metabolic standpoint in addition to the respiratory failure of compensation. Saturations are marginal, but chest x-ray does not show any pneumothorax or other complications as contributing factors. 2. Septic shock secondary to aspiration pneumonia Patient currently on 4 pressors. Clinical suspicion for refractory shock. Patient does have gram-positive cocci in clusters noted on all blood cultures at this point. Clinical suspicion for staph aureus aspiration pneumonia leading to the current condition. Patient will be given 2 A of bicarb to help with acidosis to allow family to get to the bedside. Very poor to grim prognosis at this time. 3. Acute kidney injury secondary to problems #1 and 2 Baseline creatinine of 0.5 with a creatinine of 1.15 at this time. Marginal urine output has been noted. Clinical suspicion for ATN secondary to problems 1 and 2. Patient is receiving significant amounts of fluids secondary to supportive measures. Patient is a very poor candidate for renal replacement therapy at this time, but currently does not meet any indication except for extreme acidosis secondary to problem #2. 4. Metabolic encephalopathy/shock liver (transaminitis) Patient with elevation of GGT, AST, ALT and alk phos indicating probable shock liver. Blood pressures are currently being supported with maximum effort. We will continue with supportive care. Patient will be taken off of fentanyl as this can lower respiratory rate and complicate problem #1. Patient does not appear to be in pain at this time. 5. Possible normal pressure of hydrocephalus/history of seizure disorder/autism Unclear if patient is truly a normal pressure hydrocephalus. No previous studies available for review. Patient does have a history of autism with seizure disorder that may be leading to dilated ventricles. Patient continues to have cranial reflexes. Problems 1 and 2 are likely reasonable etiologies for presentation. 6. Peptic ulcer disease/severe malnutrition/history of chronic wounds/hyponatremia/chronic iron deficiency anemia Complicates care, management, recovery and prognosis. Patient is receiving significant amount of tube feeds if nursing report is correct. Cannot exclude retrograde aspiration leading to current findings. Patient is on Protonix. No signs or symptoms of GI bleed at this time. Very poor overall prognosis. Addendum 9:41 AM: Family has arrived at the bedside. Family also has a preacher with them. Patient's status was reviewed in detail. They understand the grim prognosis but do not want to give up. After review of the various options, they have decided that DNR Comfort Care arrest would be most appropriate as they do not want her to suffer with CPR, but wanted continue to put it in God's hands. Family understands that the patient is likely in refractory shock will not survive even with aggressive measures. Addendum 10:02 AM: Patient passed at 9:58 AM secondary to septic shock secondary/ARDS to probable staph aureus aspiration pneumonia with family at the bedside. Hospitalist and life bank will be notified. TIME: 110 minutes of critical care time has been spent addressing respiratory failure, septic shock, acute kidney injury, metabolic encephalopathy, review of all data and collaboration with care team HPI Consult Data Date of Consult: 07/12/22 HPI Narrative Reason for Consultation: Multisystem organ failure HPI Narrative: VAL SIMPSON is a 52 F, with past medical history listed below, who presents to [facility] on 07/11/2022 secondary to being unresponsive with a syncopal episode. Patient was reportedly at the kitchen table having feeds through her PEG tube and then suddenly slumped over with her head hitting the ground. Patient was not responsive thereafter and EMS was called. Patient does have a history of autism and is nonverbal at baseline. Patient was found to be in respiratory distress with saturations in the 60s and 70s on a nonrebreather. Patient does have a reported history of seizure disorder. In the ER, patient was hypothermic at 80 ?F and saturating 64% on a nonrebreather. Patient was alert initially normotensive, but then became hypotensive. Patient was immediately intubated secondary to desaturation. Laboratory work-up showed a white blood cell count of 35.4, hemoglobin of 11.6 and platelets of 451. Glucose was initially elevated at 404 despite patient not having a history of diabetes. Bicarbonate was elevated at 28 and lactate was 3.9. Patient did have an elevation of liver enzymes along with alkaline phosphatase. Immediately following intubation, an ABG showed a respiratory acidosis with elevated AA gradient and a P to F ratio of 97. Initial imaging studies showed a scalp hematoma with suspect normal pressure hydrocephalus, but normal spinal CT. Chest x-ray showed significant right-sided infiltrates with supportive devices in appropriate positions. The patient was given 2 L of IV fluids and Zosyn. Patient was then admitted to the intensive care unit. After arrival to the intensive care unit, patient started to have significant problems with oxygenation. Patient was placed in different body positions to allow for suctioning. Copious amounts of tube feed like material were removed from the endotracheal tube. Chest x-ray did show significant infiltrates bilaterally. Multiple phone calls with myself overnight but ultimately, patient ended up on APRV with a P high of 28, P low 0, T high of 4.5 and a T low of 0.5. Patient saturations were in the upper 80s to lower 90s after proning. Patient did have a central line placed as she became progressively hypotensive overnight requiring Levophed, vasopressin and stress dose steroids. This morning, epinephrine was added to Meir-Synephrine. Attempt to reach the family at this time are unsuccessful. Patient reportedly is a full code. Nursing was suggesting the patient may be getting up to 4-1/2 L of GI input per day. Unable to obtain further information [facility] Medical History Anemia Anxiety Autism Bladder disease Chronic constipation Colon cancer screening Constipation Dental infection Developmental non-verbal disorder Difficulty chewing Difficulty swallowing Feeding difficulties, behavioral History of blood transfusion History of edema Hypokalemia Insomnia due to mental disorder Intellectual disability Loose, teeth Non-smoker Nutrition disorder Pressure ulcer Seasonal allergies Seizures Teeth decayed Uses wheelchair Vision problem Vitamin D deficiency Home Medications diphenhydramine HCl 25 mg capsule (Allergy (diphenhydramine)) 25 mg PO DAILY 11/25/21 [History Last Taken Unknown] gait belt #2 ea 01/07/22 [Rx Last Taken Unknown] incontinence pad, liner, disp #125 ea 01/07/22 [Rx Last Taken Unknown] potassium bicarbonate-citric acid 25 mEq effervescent tablet 25 meq PO DAILY #90 ea 01/07/22 [Rx Last Taken Unknown] compr.stocking,knee,long,small #12 ea 01/13/22 [Rx Last Taken Unknown] Walk in transitional tub with jets #1 ea 01/19/22 [Rx Last Taken Unknown] melatonin 3 mg tablet 3 mg PO QHS 02/04/22 [History Last Taken Unknown] acetaminophen 500 mg tablet 500 mg PO .PRN 04/21/22 [History Last Taken Unknown] esomeprazole magnesium 20 mg granules delayed release for susp (Nexium Packet) 20 mg PO DAILY 04/21/22 [History Last Taken Unknown] syringe disposable, irrigation 70 mL (Keith Syringe) #50 ea 05/05/22 [Rx Last Taken Unknown] IV STAND #1 ea 07/02/22 [Rx Last Taken Unknown] PEG TUBE COMER #1 ea 07/02/22 [Rx Last Taken Unknown] multivitamin 1 tab PO DAILY 07/06/22 [History Last Taken Unknown] risperidone 1 mg tablet 1 mg PO QHS #30 tabs 07/06/22 [Rx Last Taken Unknown] diazepam 5 mg tablet (Valium) 5 mg PO BID PRN agitation #30 tabs 07/08/22 [Rx Last Taken Unknown] acetaminophen 500 mg chewable tablet 500 mg PO BID pain 07/11/22 [History Last Taken Unknown] ascorbic acid (vitamin C) 1,000 mg capsule,extended release 1,000 cap PO supplement 07/11/22 [History Last Taken Unknown] biotin 800 mcg tablet 800 mcg PO DAILY supplement 07/11/22 [History Last Taken Unknown] docusate sodium 50 mg tablet 50 mg PO Bowels 07/11/22 [History Last Taken Unknown] esomeprazole magnesium 40 mg capsule,delayed release (Nexium) 40 mg PO DAILY GERD 07/11/22 [History Last Taken Unknown] loratadine 5 mg/5 mL oral solution 15 mg feeding tube 1XD allergies 07/11/22 [History Last Taken Unknown] vitamin B complex ea PO supplement 07/11/22 [History Last Taken Unknown] Allergy/AdvReac Type Severity Reaction Status Date / Time No Known Allergies Allergy Verified 07/11/22 13:10 Family History Other Alcoholism Anemia Anesthesia complication Anxiety Arthritis Asthma Bleeding disorder Blood clot in vein Bowel disease FH: defects Heart disease High cholesterol Hypertension Mental disorder Myocardial infarction Osteoporosis Psychiatric care Seasonal allergies Seizure, epileptic Thyroid disorder Surgical History History of appendectomy History of colonoscopy Social History household members: caregiver Smoking Status: Never smoker alcohol intake: never substance use type: does not use diet: other well-balanced diet: other details: TUBE FEED only additional social history: non verbal at baseline ROS Review of Systems ROS Unobtainable: due to endotracheal tube and due to mental status Physical Exam Const Constitutional Narrative: Evaluated in the prone position General Appearance: lethargic HEENT normocephalic, hearing grossly normal bilaterally and moist oral mucous membranes HEENT Narrative: Scattered facial trauma with ecchymosis, ET tube in place. Positive gag and cough reflex Neck no lymphadenopathy, supple, no JVD and no carotid bruits Neck Narrative: Trachea midline, no thyroid enlargement Resp no retractions and no use of accessory muscles Resp Narrative: Markedly diminished right lower lobe with rhonchi Auscultation: rhonchi and diminished lung sounds; Negative for crackles, rales or wheezes Cardio regular rate, regular rhythm, S1 normal heart sound, S2 normal heart sound, no murmurs, no rub, no gallops, no clicks and no JVD GI normal to inspection, nondistended, normoactive bowel sounds, soft to palpation, non-tender and non-distended GI Narrative: PEG in place, clean and dry Extremity Extremity Narrative: Bilateral lower extremity trace edema at the feet, mottling of bilateral lower extremities with discoloration-patient family states this is chronic Skin skin turgor normal, no jaundice and no petechiae Skin Narrative: Scattered ecchymotic areas on head related to fall, mottling noted to the knees. General Skin Exam: mottling Hair: general thinning Nails: dystrophic Neuro Neuro Narrative: 2+ upper and lower extremity reflexes, nonverbal at baseline Psych Psych Narrative: Unable to assess Lab / Micro Data Attestation: I reviewed the patient's lab results. Result Diagrams: 07/12/22 04:17 07/12/22 04:17 Labs: Laboratory Results - last 24 hr 07/11/22 11:33: WBC 35.4 H*, RBC 4.26, Hgb 11.6 L, Hct 38.2, MCV 89.7, MCH 27.2, MCHC 30.4 L, RDW Std Deviation 57.7 H, RDW Coeff of Chase 17.7 H, Plt Count 451 H, MPV 9.4, Immature Gran % (Auto) 2.100 H, Neut % (Auto) 91.6 H, Lymph % (Auto) 3.2 L, [place]ont[place] % (Auto) 2.5, Eos % (Auto) 0.1, Baso % (Auto) 0.5, Absolute Neuts (auto) 32.4 H, Absolute Lymphs (auto) 1.14, Nucleated RBC % 0.1, Differential Comment SCANNED, Diff Path Review February07/11/22 11:33: Sodium 132 L, Potassium 4.0, Chloride 94 L, Carbon Dioxide 28.0, Anion Gap 10, BUN 22 H, Creatinine 0.57, Estim Creat Clear Calc 89.24, Est GFR (MDRD) Af Amer 141, Est GFR (MDRD) Non-Af 117, BUN/Creatinine Ratio 38.5 H, Glucose 404 H, Calcium 8.8, Total Bilirubin 0.60, AST 99 H, ALT 100 H, Alkaline Phosphatase 425 H, Troponin I High Sens 12, Total Protein 6.9, Albumin 2.9 L, Globulin 4.0, Albumin/Globulin Ratio 0.7 L 07/11/22 11:33: Lactic Acid 3.9 H* 07/11/22 11:33: TSH 3.78 H 07/11/22 11:33: Hemoglobin A1c 5.3 07/11/22 11:33: Procalcitonin 0.70 H 07/11/22 14:20: Ammonia 23.0 07/11/22 14:20: Free T4 1.14 07/11/22 14:20: Total Creatine Kinase 489 H, Triglycerides 38 07/11/22 14:30: Urine Color Yellow, Urine Clarity Clear, Urine pH 6.0, Ur Specific Butler 1.015, Urine Protein 30 H, Urine Glucose (UA) 1000 H, Urine Ketones 5 H, Urine Occult Blood 250 H, Urine Nitrite Negative, Urine Bilirubin Negative, Urine Urobilinogen Normal, Ur Leukocyte Esterase Negative, Urine RBC 5-10 SEEN, Urine WBC 0-5 SEEN, Ur Squamous Epith Cells 0-5 SEEN, Urine Bacteria 0 SEEN, Urine Mucus 0 SEEN 07/11/22 19:33: PT 16.0 H, INR 1.3, APTT 38.4 H 07/11/22 19:33: WBC 0.5 L*, RBC 3.54 L, Hgb 9.6 L, Hct 31.5 L, MCV 89.0, MCH 27.1, MCHC 30.5 L, RDW Std Deviation 56.5 H, RDW Coeff of Chase 17.4 H, Plt Count 230, MPV 8.4, Immature Gran % (Auto) 0.000, Neut % (Auto) 64.7, Lymph % (Auto) 33.3, Poc[place]ont[place] % (Auto) 2.0, Eos % (Auto) 0.0, Baso % (Auto) 0.0, Absolute Neuts (auto) 0.3 L, Absolute Lymphs (auto) 0.17 L, Nucleated RBC % 7.8 H, Diff Path Review February, Platelet Estimate ADEQUATE, RBC Morphology N CYTIC 07/11/22 19:33: Sodium 142, Potassium 3.5, Chloride 110 H, Carbon Dioxide 23.0, Anion Gap 9, BUN 23 H, Creatinine 0.50 L, Estim Creat Clear Calc 101.73, Est GFR (MDRD) Af Amer 165, Est GFR (MDRD) Non-Af 137, BUN/Creatinine Ratio 46.1 H, Glucose 80, Calcium 7.2 L, Total Bilirubin 0.60, AST 53 H, ALT 54, Alkaline Phosphatase 222 H, Total Protein 4.1 L, Albumin 1.7 L, Globulin 2.4, Albumin/Globulin Ratio 0.7 L 07/11/22 19:57: POC Glucose 59 L 07/11/22 20:08: WBC 0.5 L*, RBC 3.32 L, Hgb 8.9 L, Hct 29.5 L, MCV 88.9, MCH 26.8 L, MCHC 30.2 L, RDW Std Deviation 56.4 H, RDW Coeff of Chase 17.4 H, Plt Count 223, MPV 8.7, Immature Gran % (Auto) Cancelled, Neut % (Auto) Cancelled, Lymph % (Auto) Cancelled, [place] % (Auto) Cancelled, Eos % (Auto) Cancelled, Baso % (Auto) Cancelled, Neut # (Auto) Cancelled, Immature Gran # (Auto) Cancelled, Absolute Neuts (auto) Cancelled, Absolute Lymphs (auto) Cancelled, Absolute Monos (auto) Cancelled, Total Counted Cancelled, Neutrophils % (Manual) Cancelled, Band Neutrophils % Cancelled, Lymphocytes % (Manual) Cancelled, Monocytes % (Manual) Cancelled, Eosinophils % (Manual) Cancelled, Basophils % (Manual) Cancelled, Metamyelocytes % Cancelled, Myelocytes % Cancelled, Promyelocytes % Cancelled, Blast Cells % Cancelled, Plasma Cell % (Manual) Cancelled, Other Cells % Cancelled, Nucleated RBC % Cancelled, Lymphocytes # Cancelled, Basophils # Cancelled, Nucleated RBCs/100 WBC Cancelled, Differential Comment Cancelled, Hypersegmented Neuts Cancelled, Atypical Lymphocytes Cancelled, Reactive Lymphocytes Cancelled, Smudge Cells Cancelled, Eosinophilia # Cancelled, Toxic Granulation Cancelled, Toxic Vacuolation Cancelled, Dohle Bodies Cancelled, Rajani Rods Cancelled, Platelet Estimate Cancelled, Plt Morphology Comment Cancelled, RBC Morphology Cancelled, Polychromasia Cancelled, Hypochromasia Cancelled, Poikilocytosis Cancelled, Basophilic Stippling Cancelled, Anisocytosis Cancelled, Microcytosis Cancelled, Macrocytosis Cancelled, Spherocytes Cancelled, Sickle Cells Cancelled, Target Cells Cancelled, Tear Drop Cells Cancelled, Ovalocytes Cancelled, Stomatocytes Cancelled, Robertson-G[place] Bodies Cancelled, [place] Cells Cancelled, Bite Cells Cancelled, Crenated Cell Cancelled, Acanthocytes (Spur) Cancelled, Rouleaux Cancelled, Schistocytes Cancelled 07/11/22 : Lactic Acid 2.6 H* 07/12/22 00:27: POC Glucose 47 L 07/12/22 02:11: POC Glucose 77 07/12/22 04:17: Sodium 140, Potassium 5.0, Chloride 110 H, Carbon Dioxide 16.0 L, Anion Gap 14, BUN 32 H, Creatinine 1.15 H, Estim Creat Clear Calc 44.23, Est GFR (MDRD) Af Amer 63, Est GFR (MDRD) Non-Af 52 L, BUN/Creatinine Ratio 27.8 H, Glucose 57 L, Calcium 7.0 L, Magnesium 2.2, Total Bilirubin 0.80, GGT 125 H, AST 245 H, ALT 190 H, Alkaline Phosphatase 228 H, Total Protein 4.4 L, Albumin 1.4 L, Globulin 3.0, Albumin/Globulin Ratio 0.5 L 07/12/22 04:17: WBC 6.8, RBC 3.67 L, Hgb 9.9 L, Hct 35.4 L, MCV 96.5 D, MCH 27.0, MCHC 28.0 L D, RDW Std Deviation 63.1 H, RDW Coeff of Chase 18.0 H, Plt Count 148 L, MPV 9.4, Immature Gran % (Auto) 3.500 H, Neut % (Auto) 85.4 H, Lymph % (Auto) 6.0 L, [place] % (Auto) 4.0, Eos % (Auto) 0.4, Baso % (Auto) 0.7, Absolute Neuts (auto) 5.8, Absolute Lymphs (auto) 0.41 L, Nucleated RBC % 7.6 H, Atypical Lymphocytes 1+, Platelet Estimate SLT DEC, Anisocytosis 2+ 07/12/22 04:17: Phosphorus 5.8 H 07/12/22 04:17: POC Glucose 52 L 07/12/22 04:52: POC Glucose 140 H Micro: Microbiology 07/11/22 11:33 Blood Culture (Wb) - Anticubital Right Blood Culture - Preliminary 07/11/22 12:20 Blood Culture (Wb) - Venous Blood Culture - Preliminary 07/11/22 14:30 Urine Catheter - [place] Legionella Antigen - Final 07/11/22 14:30 Urine Catheter - [place] Streptococcus pneumoniae Antigen (M - Final 07/11/22 12:00 Nasal Secretion SARS-CoV-2 Antigen (Rapid) - Final ABG Data ABG results: ABG 07/11/22 07/11/22 12:19 15:07 Specimen Type ART ART Sample Site R Radial R Radial pH 7.25 L 7.29 L Bicarbonate Actual 26.5 H 26.8 H Total CO2 28 29 Base Excess -1 0 O2 Saturation 96 94 L O2 % 100 75 ABG pCO2 61.0 H 55.3 H ABG pO2 97 78 Salty Test Positive Positive Respiration Rate 14 14 O2 Delivery Device Adult Vent Adult Vent Vent Mode AC AC Tidal Volume 450 450 POC PEEP 5 5 Attestation: I personally reviewed and interpreted this ABG as follows: (Acute respiratory acidosis with increased AA gradient) Rhythm Strip Rhythm Strip: Sinus Rhythm Radiology Impression Brain CT 07/11/22 11:46 IMPRESSION: 1. Small left anterior parietal scalp hematoma. No intracranial hemorrhage. 2. Suspect normal pressure hydrocephalus with particular dilatation of the occipital horns of the lateral ventricles. Electronically Signed: Reyes Yo MD at 12:44 EDT Reading Location ID and State: [id number] / [employer] , Service support , Chest X-Ray 07/11/22 11:46 IMPRESSION: 1. Endotracheal tube with the tip above the ramesh. 2. Nasogastric tube with the tip below the diaphragm. 3. Right middle lobe pneumonia. Electronically Signed: Reyes Yo MD at 12:14 EDT Reading Location ID and State: [employer] / [employer] , Service support , Cervical Spine CT 07/11/22 11:48 IMPRESSION: No acute fracture or subluxation. Electronically Signed: Reyes Yo MD at 12:49 EDT Reading Location ID and State: [id number] / [employer] , Service support , Chest X-Ray 07/11/22 17:30 IMPRESSION: Worsening bilateral pneumonia, pulmonary edema, or ARDS. Electronically Signed: Reyes Yo MD at 18:07 EDT Reading Location ID and State: [id number] / [employer] , Service support , Chest X-Ray 07/11/22 19:02 IMPRESSION: Interval placement of right internal jugular deep venous line with tip the catheter overlying the junction of the right atrium and spur vena cava with no pneumothorax. Electronically Signed: Reyes Yo MD at 19:31 EDT , Charges/Coding Procedures Hospitalists Procedures: 95104 Critial Care 1st Hr Multi [facility] Hospitalists' Procedures Procedures: 22491 Critial Care Addl 30 Min (x2, 110 minutes critical care)
--- NOTE | 2022-07-12 06:56 | PN.HOSP_ITS ---
Objective Data Objective Data Vital Signs: Vital Signs Temp Pulse Resp BP Pulse Ox O2 Del Method O2 Flow Rate 35.9 C L 90 26 H 74/58 L 83 Mechanical Ventilator 100 07/12/22 06:00 07/12/22 06:00 07/12/22 06:00 07/12/22 06:00 07/12/22 06:00 07/12/22 06:00 07/11/22 18:00 FiO2 100 07/12/22 06:00 Oxygen Flow Rate (L/min) 100 Oxygen Delivery Method Mechanical Ventilator Weight: 51.7 kg Body Mass Index (BMI) 20.7 Intake & Output: Intake and Output for Last 24 Hours 07/10/22 07/11/22 07/12/22 23:59 23:59 23:59 Intake Total 3641.94 / 3748.39 2543.74 / 2543.74 Output Total 300 / 410 710 / 710 Balance 3341.94 / 3338.39 1833.74 / 1833.74 Lab / Micro Data Result Diagrams: 07/12/22 04:17 07/12/22 04:17 Labs: Laboratory Results - last 24 hr 07/11/22 11:33: WBC 35.4 H*, RBC 4.26, Hgb 11.6 L, Hct 38.2, MCV 89.7, MCH 27.2, MCHC 30.4 L, RDW Std Deviation 57.7 H, RDW Coeff of Chase 17.7 H, Plt Count 451 H, MPV 9.4, Immature Gran % (Auto) 2.100 H, Neut % (Auto) 91.6 H, Lymph % (Auto) 3.2 L, Dukes % (Auto) 2.5, Eos % (Auto) 0.1, Baso % (Auto) 0.5, Absolute Neuts (auto) 32.4 H, Absolute Lymphs (auto) 1.14, Nucleated RBC % 0.1, Differential Comment SCANNED, Diff Path Review February07/11/22 11:33: Sodium 132 L, Potassium 4.0, Chloride 94 L, Carbon Dioxide 28.0, Anion Gap 10, BUN 22 H, Creatinine 0.57, Estim Creat Clear Calc 89.24, Est GFR (MDRD) Af Amer 141, Est GFR (MDRD) Non-Af 117, BUN/Creatinine Ratio 38.5 H, Glucose 404 H, Calcium 8.8, Total Bilirubin 0.60, AST 99 H, ALT 100 H, Alkaline Phosphatase 425 H, Troponin I High Sens 12, Total Protein 6.9, Albumin 2.9 L, Globulin 4.0, Albumin/Globulin Ratio 0.7 L 07/11/22 11:33: Lactic Acid 3.9 H* 07/11/22 11:33: TSH 3.78 H 07/11/22 11:33: Hemoglobin A1c 5.3 07/11/22 11:33: Procalcitonin 0.70 H 07/11/22 14:20: Ammonia 23.0 07/11/22 14:20: Free T4 1.14 07/11/22 14:20: Total Creatine Kinase 489 H, Triglycerides 38 07/11/22 14:30: Urine Color Yellow, Urine Clarity Clear, Urine pH 6.0, Ur Specific [place] 1.015, Urine Protein 30 H, Urine Glucose (UA) 1000 H, Urine Ketones 5 H, Urine Occult Blood 250 H, Urine Nitrite Negative, Urine Bilirubin Negative, Urine Urobilinogen Normal, Ur Leukocyte Esterase Negative, Urine RBC 5-10 SEEN, Urine WBC 0-5 SEEN, Ur Squamous Epith Cells 0-5 SEEN, Urine Bacteria 0 SEEN, Urine Mucus 0 SEEN 07/11/22 19:33: PT 16.0 H, INR 1.3, APTT 38.4 H 07/11/22 19:33: WBC 0.5 L*, RBC 3.54 L, Hgb 9.6 L, Hct 31.5 L, MCV 89.0, MCH 27.1, MCHC 30.5 L, RDW Std Deviation 56.5 H, RDW Coeff of Chase 17.4 H, Plt Count 230, MPV 8.4, Immature Gran % (Auto) 0.000, Neut % (Auto) 64.7, Lymph % (Auto) 33.3, Dukes % (Auto) 2.0, Eos % (Auto) 0.0, Baso % (Auto) 0.0, Absolute Neuts (auto) 0.3 L, Absolute Lymphs (auto) 0.17 L, Nucleated RBC % 7.8 H, Diff Path Review February, Platelet Estimate ADEQUATE, RBC Morphology N CYTIC 07/11/22 19:33: Sodium 142, Potassium 3.5, Chloride 110 H, Carbon Dioxide 23.0, Anion Gap 9, BUN 23 H, Creatinine 0.50 L, Estim Creat Clear Calc 101.73, Est GFR (MDRD) Af Amer 165, Est GFR (MDRD) Non-Af 137, BUN/Creatinine Ratio 46.1 H, Glucose 80, Calcium 7.2 L, Total Bilirubin 0.60, AST 53 H, ALT 54, Alkaline Phosphatase 222 H, Total Protein 4.1 L, Albumin 1.7 L, Globulin 2.4, Albumin/Globulin Ratio 0.7 L 07/11/22 19:57: POC Glucose 59 L 07/11/22 20:08: WBC 0.5 L*, RBC 3.32 L, Hgb 8.9 L, Hct 29.5 L, MCV 88.9, MCH 26.8 L, MCHC 30.2 L, RDW Std Deviation 56.4 H, RDW Coeff of Chase 17.4 H, Plt C ount 223, MPV 8.7, Immature Gran % (Auto) Cancelled, Neut % (Auto) Cancelled, Lymph % (Auto) Cancelled, Dukes % (Auto) Cancelled, Eos % (Auto) Cancelled, Baso % (Auto) Cancelled, Neut # (Auto) Cancelled, Immature Gran # (Auto) Cancelled, Absolute Neuts (auto) Cancelled, Absolute Lymphs (auto) Cancelled, Absolute Monos (auto) Cancelled, Total Counted Cancelled, Neutrophils % (Manual) Cancelled, Band Neutrophils % Cancelled, Lymphocytes % (Manual) Cancelled, Monocytes % (Manual) Cancelled, Eosinophils % (Manual) Cancelled, Basophils % (Manual) Cancelled, Metamyelocytes % Cancelled, Myelocytes % Cancelled, Promyelocytes % Cancelled, Blast Cells % Cancelled, Plasma Cell % (Manual) Cancelled, Other Cells % Cancelled, Nucleated RBC % Cancelled, Lymphocytes # Cancelled, Basophils # Cancelled, Nucleated RBCs/100 WBC Cancelled, Differential Comment Cancelled, Hypersegmented Neuts Cancelled, Atypical Lymphocytes Cancelled, Reactive Lymphocytes Cancelled, Smudge Cells Cancelled, Eosinophilia # Cancelled, Toxic Granulation Cancelled, Toxic Vacuolation Cancelled, Dohle Bodies Cancelled, Rajani Rods Cancelled, Platelet Estimate Cancelled, Plt Morphology Comment Cancelled, RBC Morphology Cancelled, Polychromasia Cancelled, Hypochromasia Cancelled, Poikilocytosis Cancelled, Basophilic Stippling Can celled, Anisocytosis Cancelled, Microcytosis Cancelled, Macrocytosis Cancelled, Spherocytes Cancelled, Sickle Cells Cancelled, Target Cells Cancelled, Tear Drop Cells Cancelled, Ovalocytes Cancelled, Stomatocytes Cancelled, Robertson-Hoskins Bodies Cancelled, [place] Cells Cancelled, Bite Cells Cancelled, Crenated Cell Cancelled, Acanthocytes (Spur) Cancelled, Rouleaux Cancelled, Schistocytes Cancelled 07/11/22 : Lactic Acid 2.6 H* 07/12/22 00:27: POC Glucose 47 L 07/12/22 02:11: POC Glucose 77 07/12/22 04:17: Sodium 140, Potassium 5.0, Chloride 110 H, Carbon Dioxide 16.0 L , Anion Gap 14, BUN 32 H, Creatinine 1.15 H, Estim Creat Clear Calc 44.23, Est GFR (MDRD) Af Amer 63, Est GFR (MDRD) Non-Af 52 L, BUN/Creatinine Ratio 27.8 H, Glucose 57 L, Calcium 7.0 L, Magnesium 2.2, Total Bilirubin 0.80, GGT 125 H, AST 245 H, ALT 190 H, Alkaline Phosphatase 228 H, Total Protein 4.4 L, Albumin 1.4 L , Globulin 3.0, Albumin/Globulin Ratio 0.5 L 07/12/22 04:17: WBC 6.8, RBC 3.67 L, Hgb 9.9 L, Hct 35.4 L, MCV 96.5 D, MCH 27.0, MCHC 28.0 L D, RDW Std Deviation 63.1 H, RDW Coeff of Chase 18.0 H, Plt Count 148 L, MPV 9.4, Immature Gran % (Auto) 3.500 H, Neut % (Auto) 85.4 H, Lymph % (Auto) 6.0 L, Dukes % (Auto) 4.0, Eos % (Auto) 0.4, Baso % (Auto) 0.7, Absolute Neuts (auto) 5.8, Absolute Lymphs (auto) 0.41 L, Nucleated RBC % 7.6 H, Atypical Lymphocytes 1+, Platelet Estimate SLT DEC, Anisocytosis 2+ 07/12/22 04:17: Phosphorus 5.8 H 07/12/22 04:17: POC Glucose 52 L 07/12/22 04:52: POC Glucose 140 H Micro: Microbiology 07/11/22 11:33 Blood Culture (Wb) - Anticubital Right Blood Culture - Prel iminary 07/11/22 12:20 Blood Culture (Wb) - Venous Blood Culture - Preliminary 07/11/22 14:30 Urine Catheter - [place] Legionella Antigen - Final 07/11/22 14:30 Urine Catheter - [place] Streptococcus pneumoniae Antigen (M - Final 07/11/22 12:00 Nasal Secretion SARS-CoV-2 Antigen (Rapid) - Final ABG Data ABG results: ABG 07/11/22 07/11/22 12:19 15:07 Specimen Type ART ART Sample Site R Radial R Radial pH 7.25 L 7.29 L Bicarbonate Actual 26.5 H 26.8 H Total CO2 28 29 Base Excess -1 0 O2 Saturation 96 94 L O2 % 100 75 ABG pCO2 61.0 H 55.3 H ABG pO2 97 78 Salty Test Positive Positive Respiration Rate 14 14 O2 Delivery Device Adult Vent Adult Vent Vent Mode AC AC Tidal Volume 450 450 POC PEEP 5 5 Radiography Diagnostic Testing: Radiology Impression Brain CT 07/11/22 11:46 IMPRESSION: 1. Small left anterior parietal scalp hematoma. No intracranial hemorrhage. 2. Suspect normal pressure hydrocephalus with particular dilatation of the occipital horns of the lateral ventricles. Electronically Signed: Reyes Yo MD at 12:44 EDT Reading Location ID and State: [id number] / [employer] , Service support , Chest X-Ray 07/11/22 11:46 IMPRESSION: 1. Endotracheal tube with the tip above the ramesh. 2. Nasogastric tube with the tip below the diaphragm. 3. Right middle lobe pneumonia. Electronically Signed: Reyes Yo MD at 12:14 EDT Reading Location ID and State: [id number] / [employer] , Service support , Cervical Spine CT 07/11/22 11:48 IMPRESSION: No acute fracture or subluxation. Electronically Signed: Reyes Yo MD at 12:49 EDT Reading Location ID and State: [id number] / [employer] , Service support , Chest X-Ray 07/11/22 17:30 IMPRESSION: Worsening bilateral pneumonia, pulmonary edema, or ARDS. Electronically Signed: Reyes Yo MD at 18:07 EDT Reading Location ID and State: [id number] / [employer] , Service support , Chest X-Ray 07/11/22 19:02 IMPRESSION: Interval placement of right internal jugular deep venous line with tip the catheter overlying the junction of the right atrium and spur vena cava with no pneumothorax. Electronically Signed: Reyes Yo MD at 19:31 EDT Reading Location ID and State: [employer] / [employer] , Service support , Assessment & Plan Assessment/Plan (1) Sepsis: QUALIFIERS: Sepsis type: sepsis due to unspecified organism Sepsis acute organ dysfunction status: with acute organ dysfunction Severe sepsis acute organ dysfunction type: acute liver failure Hepatic coma status: unspecified Severe sepsis shock status: with septic shock Qualified Code(s): A41.9 - Sepsis, unspecified organism; R65.21 - Severe sepsis with septic shock; K72.01 - Acute and subacute hepatic failure with coma PLAN: Sepsis secondary to aspiration pneumonia/+-other concurrent infection -Patient with marked leukocytosis, hypothermia, respiratory failure, elevated lactate, and acute mental status change -Currently responding to fluid boluses however cannot rule out septic shock and requirement for pressors at this time -Reevaluate once fluid resuscitation is complete -Family states baseline blood pressure is around 90 systolic -Check blood/urine/sputum cultures -Obtain UA -Check procalcitonin -Start broad-spectrum antibiotics with vancomycin and Zosyn -Pressors w norepi, epi, phen (2) Acute respiratory failure with hypoxia and hypercapnia: PLAN: Acute hypoxic and hypercapnic respiratory failure -Patient presented with marked hypoxia with documented oxygen saturations on a nonrebreather at 60 to 70% -Emergently intubated the emergency department -Post ABG shows persistent hypercapnia with PCO2 of 61 -Adjust vent and repeat ABG in 1 hour -Patient is not O2 dependent at baseline -Checks x-ray shows a large right lower lobe pneumonia likely consistent with aspiration as it is documented tube feed were found in her oropharynx upon intubation -Cover with broad-spectrum antibiotics -COVID and flu negative -Check strep pneumo and Legionella antigens -Check sputum culture -As needed albuterol -Consult pulmonary/critical care -Mech vent w 100% FiO2 (3) Aspiration pneumonia: PLAN: Abx as above Strep and legionella antigens negative Sputum Cx pending Rapid COVID 19 negative. (4) Toxic metabolic encephalopathy: PLAN: Toxic/metabolic encephalopathy -Etiology unknown as it sounds like this occurred prior to her decompensation -Patient with remote seizure history -Check EEG -Check ammonia level -ABG shows respiratory acidosis and follow-up pending (5) Hyperglycemia: PLAN: Hyperglycemia -Blood sugar on presentation was 404 -Patient not diabetic at baseline -No known history of diabetes in the family -A1c 5.3 -Sliding scale every 6 hours -Accu-Cheks every 6 hours (6) Thrombocytosis: PLAN: Thrombocytosis -Appears to be chronic but slightly elevated from recently -Continue to monitor (7) Hyponatremia: PLAN: Hyponatremia -Mild at 132 -Does not appear to be baseline -Continue to monitor (8) Lactic acidosis: PLAN: Lactic acidosis -Likely related to sepsis and hypoxia -Repeat per protocol -Anticipate improvement with fluid boluses and intubation (9) Transaminitis: PLAN: Transaminitis/elevated alkaline phosphatase -Slightly elevated from baseline -Check ammonia level -Check GGT with alk phos trending up (10) Elevated alkaline phosphatase level: (11) Leukocytosis: PLAN: Leukocytosis -Suspect related to above -Continue to monitor -Antibiotics as noted (12) Severe malnutrition: (13) Hypothermia: PLAN: Plan Hypothermia -Etiology unknown -Check TSH -Bear hugger for warming -May be related to sepsis Possible normal pressure hydrocephalus -CT of the head shows dilated ventricles but unfortunately we do not have a baseline to compare -She has urinary incontinence since -Family does report increased mobility issues as of recently Severe malnutrition -Consult dietitian -N.p.o. for now given above issues -Patient has PEG tube and on tube feed at baseline PUD -Patient was to undergo repeat EGD by Dr. White -Appears that it was H. pylori related -On omeprazole at baseline -Protonix 40 mg IV twice daily History of seizure disorder -Per family she takes potassium bicarbonate-citric acid 25 mg effervescent tablets daily for this -No seizure in a long time per conversation with her brother -We will check EEG given presentation Chronic iron deficiency anemia -Hemoglobin appears stable Vascular disease -Patient appears to have poor blood flow bilateral lower extremities -Per family she developed swelling and wounds frequently -Consult wound management Autism with severe behavioral issues -Hold Risperdal and Valium--> recently started in the last 2 weeks -Patient currently intubated and sedated DVT prophylaxis -Lovenox subcu daily -SCDs CODE STATUS -full code as per discussion with her POA-Guardian brother in the emergency department upon admission Critical care time greater than 35 minutes excluding procedures
[2022-07-12 07:00] LABS: Bedside Glucose 74 mg/dL (74-106)
[2022-07-12 07:40] LABS: Bedside Glucose 95 mg/dL (74-106)
--- NOTE | 2022-07-12 07:51 | NURSING ---
attempted to reach Brian, Legal guardians, voicemail left to call back as soon as possible.
--- NOTE | 2022-07-12 08:06 | NURSING ---
second attempt to reach family at this time
--- NOTE | 2022-07-12 08:07 | NURSING ---
third attempt to reach family, voicemail left again
--- NOTE | 2022-07-12 08:14 | NURSING ---
fourth attempt to reach family at this time
--- NOTE | 2022-07-12 08:34 | NURSING ---
Lisandra, called back at this time. Stated she never received voicemails, only voicemail she received was from dietitian regarding tube feeds. This RN communicated to Lisandra that patient is not doing well, we are doing everything right now to keep her alive, she is on four blood pressure support medications, heart rate is dropping, advising family to come in as soon as possible. Lisandra stated what when did this all happen when we left she was doing so much better, sepsis numbers improved. This RN communicated that patient has not been doing well and when they left overnight patient remained on three blood pressure support medications. The colorist dyer will be here to discuss POC when they arrive. Lisandra stated they will be here as soon as they can.
[2022-07-12 08:35] LABS: Allen Test Positive; Base Excess -22 mmol/L (-2 to +2); Bicarbonate 9.7 mmol/L (22-26); Blood Gas Specimen Type ART; FI02 100; Mode BiLevel; O2 Delivery Device Adult Vent; PO2 70 mmHG (75-100); RR 12; SITE R Radial; SO2 82 % (95-99); Total Carbon Dioxide 11 mmol/L; pCO2 40.8 mmHg (35-45); pH 6.99 (7.35-7.45)
[2022-07-12] MEDS: Sodium Bicarbonate 8.4% 50 ML Syringe 50 MEQ IV ×2 (08:49)
[2022-07-12] MEDS: Phenylephrine 40 mg/250 mL 0.9% NS 67.5 MG CONT INF (09:04)
[2022-07-12] MEDS: 0.9% Normal Saline 1,000 ML 150 ML IV (09:05)
[2022-07-12 09:06] LABS: Bedside Glucose 47 mg/dL (74-106)
--- NOTE | 2022-07-12 09:09 | CASEMGMT ---
JUAN MARTI NOTE: Participated in ICU liberation rounds. Pt has history of autism and nonverbal @ baseline. Pt currently intubated. Very poor to grim prognosis at this time, per Dr Lara. JUAN MARTI assessment deferred at this time. Lucinda WILLISN JUAN CM
--- NOTE | 2022-07-12 09:15 | CPS ---
not enough blood to re-run critical values. Dr. Lara notified of critical values
[2022-07-12 09:46] LABS: Bedside Glucose 147 mg/dL (74-106)
[2022-07-12] MEDS: Epinephrine (SHOCK) 16 mg in 0.9% NS 250 mL 96.9 MG CONT INF (09:48)
[2022-07-12 09:56] LABS: Blood Gas Specimen Type ART; O2 Delivery Device ADULT VENTILATOR; SITE L RADIAL
[2022-07-12 09:57] LABS: Mode APRV; T HIGH 4.5; T LOW 0.5
[2022-07-12 09:58] LABS: RR 12; pH 7.25 (7.35-7.45)
[2022-07-12 09:59] LABS: Base Excess -4 mmol/L (-2 to +2); Bicarbonate 23.4 mmol/L (22-26); PO2 70 mmHG (75-100); SO2 90 % (95-99); Total Carbon Dioxide 25 mmol/L; pCO2 53.8 mmHg (35-45)
--- NOTE | 2022-07-12 10:15 | EXP.PCM_ITS ---
Preliminary Cause of Preliminary Cause of Preliminary Cause of : Septic shock. Aspiration pneumonia acute hypoxic and hypercapnic respiratory failure ARDS Date of Admission: 07/11/22 Date of : 07/12/22 Principle Diagnosis Problem List: Active and Suspected Problems (Updated 07/12/22 @ 08:[address] Juliocesar Lara MD) Aspiration pneumonia due to gastric secretions (Acute) Hypothermia (Acute) Severe malnutrition (Acute) Leukocytosis (Acute) Elevated alkaline phosphatase level (Acute) Transaminitis (Acute) Lactic acidosis (Acute) Hyponatremia (Acute) Acute respiratory failure with hypoxia and hypercapnia (Acute) Thrombocytosis (Acute) Hyperglycemia (Acute) Toxic metabolic encephalopathy (Acute) Aspiration pneumonia (Acute) Sepsis (Acute) Hospital Course 52-year-old female presents being unresponsive with a syncopal episode. Patient was at the kitchen table having tube feeds via her PEG tube and then slumped over with hitting her head. Patient was not responsive afterwards. Patient was noted to have hypoxia with pulse ox in the 60 to 70% range. Placed on nonrebreather and brought to the emergency room. Patient was noted to be hypothermic with a temperature of 80 ?F. Patient was subsequently intubated. Patient was hypotensive patient was not clinically in septic shock. Patient did receive IV fluids but then required several pressor agents. Patient's condition continued to decline while she was 100% FiO2 on mechanical ventilator. Patient on July 12, 2022 at 0958. Sepsis: QUALIFIERS: ?Sepsis type:?sepsis due to unspecified organism?? Sepsis acute organ dysfunction status:?with acute organ dysfunction??Severe sepsis acute organ dysfunction type:?acute liver failure??Hepatic coma status:? unspecified??Severe sepsis shock status:?with septic shock? Qualified Code(s):? A41.9 - Sepsis, unspecified organism; R65.21 - Severe sepsis with septic shock; K72.01 - Acute and subacute hepatic failure with coma PLAN:?Sepsis secondary to aspiration pneumonia/+-other concurrent infection -Patient with marked leukocytosis, hypothermia, respiratory failure, elevated lactate, and acute mental status change -Currently responding to fluid boluses however cannot rule out septic shock and requirement for pressors at this time -Reevaluate once fluid resuscitation is complete -Family states baseline blood pressure is around 90 systolic -Check blood/urine/sputum cultures -Obtain UA -Check procalcitonin -Start broad-spectrum antibiotics with vancomycin and Zosyn -Pressors w norepi, epi, phen (2) Acute respiratory failure with hypoxia and hypercapnia: PLAN:?Acute hypoxic and hypercapnic respiratory failure -Patient presented with marked hypoxia with documented oxygen saturations on a nonrebreather at 60 to 70% -Emergently intubated the emergency department -Post ABG shows persistent hypercapnia with PCO2 of 61 -Adjust vent and repeat ABG in 1 hour -Patient is not O2 dependent at baseline -Checks x-ray shows a large right lower lobe pneumonia likely consistent with aspiration as it is documented tube feed were found in her oropharynx upon intubation -Cover with broad-spectrum antibiotics -COVID and flu negative -Check strep pneumo and Legionella antigens -Check sputum culture -As needed albuterol -Consult pulmonary/critical care -Mech vent w 100% FiO2 (3) Aspiration pneumonia: PLAN: Abx as above Strep and legionella antigens negative Sputum Cx pending Rapid COVID 19 negative. (4) Toxic metabolic encephalopathy: PLAN:?Toxic/metabolic encephalopathy -Etiology unknown as it sounds like this occurred prior to her decompensation -Patient with remote seizure history -Check EEG -Check ammonia level -ABG shows respiratory acidosis and follow-up pending (5) Hyperglycemia: PLAN:?Hyperglycemia -Blood sugar on presentation was 404 -Patient not diabetic at baseline -No known history of diabetes in the family -A1c 5.3 -Sliding scale every 6 hours -Accu-Cheks every 6 hours (6) Thrombocytosis: PLAN:?Thrombocytosis -Appears to be chronic but slightly elevated from recently -Continue to monitor (7) Hyponatremia: PLAN:?Hyponatremia -Mild at 132 -Does not appear to be baseline -Continue to monitor (8) Lactic acidosis: PLAN:?Lactic acidosis -Likely related to sepsis and hypoxia -Repeat per protocol -Anticipate improvement with fluid boluses and intubation (9) Transaminitis: PLAN:?Transaminitis/elevated alkaline phosphatase -Slightly elevated from baseline -Check ammonia level -Check GGT with alk phos trending up (10) Elevated alkaline phosphatase level: (11) Leukocytosis: PLAN:?Leukocytosis -Suspect related to above -Continue to monitor -Antibiotics as noted (12) Severe malnutrition: (13) Hypothermia: PLAN: Plan Hypothermia -Etiology unknown -Check TSH -Bear hugger for warming -May be related to sepsis Possible normal pressure hydrocephalus -CT of the head shows dilated ventricles but unfortunately we do not have a baseline to compare -She has urinary incontinence since -Family does report increased mobility issues as of recently Severe malnutrition -Consult dietitian -N.p.o. for now given above issues -Patient has PEG tube and on tube feed at baseline PUD -Patient was to undergo repeat EGD by Dr. White -Appears that it was H. pylori related -On omeprazole at baseline -Protonix 40 mg IV twice daily History of seizure disorder -Per family she takes potassium bicarbonate-citric acid 25 mg effervescent tablets daily for this -No seizure in a long time per conversation with her brother -We will check EEG given presentation Chronic iron deficiency anemia -Hemoglobin appears stable Vascular disease -Patient appears to have poor blood flow bilateral lower extremities -Per family she developed swelling and wounds frequently -Consult wound management Autism with severe behavioral issues -Hold Risperdal and Valium--> recently started in the last 2 weeks -Patient currently intubated and sedated DVT prophylaxis -Lovenox subcu daily -SCDs CODE STATUS -full code as per discussion with her POA-Guardian brother in the emergency department upon admission
--- NOTE | 2022-07-12 11:30 | NURSING ---
07-12-2022 [address] gill. family at bedside.
[2022-07-12 13:46] LABS: Pathologist Review Reviewed
[2022-07-12 13:47] LABS: Pathologist Review Reviewed
== END 2022-07-12 11:10 | DRG 720 ==
LOC: ED 13:08 → ICU 13:46
PROVIDERS: Family Medicine; Admitting Provider Internal Medicine; Emergency Provider Emergency Medicine; PCP Internal Medicine
DX: A41.9 Sepsis, unspecified organism (principal); K72.01 Acute and subacute hepatic failure with coma; J69.0 Pneumonitis due to inhalation of food and vomit; J96.01 Acute respiratory failure with hypoxia; R65.21 Severe sepsis with septic shock; G92.8 Other toxic encephalopathy; J15.211 Pneumonia due to Methicillin susceptible Staphylococcus aureus; J96.02 Acute respiratory failure with hypercapnia; E87.2 Acidosis; E43 Unspecified severe protein-calorie malnutrition; G91.9 Hydrocephalus, unspecified; G40.909 Epilepsy, unspecified, not intractable, without status epilepticus; D50.9 Iron deficiency anemia, unspecified; E87.1 Hypo-osmolality and hyponatremia; R74.01 Elevation of levels of liver transaminase levels; R73.9 Hyperglycemia, unspecified; F84.0 Autistic disorder; K27.9 Peptic ulcer, site unspecified, unspecified as acute or chronic, without hemorrhage or perforation; T68.XXXA Hypothermia, initial encounter
CPT/HCPCS: 31500; 31720; 36600; 51702; 70450; 71045; 72125; 80053; 81001; 82140; 82550; 82803; 82962; 82977; 83036; 83605; 83735; 84100; 84145; 84439; 84443; 84478; 84484; 85025; 85027; 85610; 85730; 87040; 87070; 87077; 87086; 87149; 87186; 87205; 87449; 87811; 93005; 94002; 94003; 95819; 99251; 99285; J7030; J7040; J7050; A4216; C1751; G0463; J3010; J3490